=== PATIENT | female | born 1955 | race African-American/Black ===

== ENCOUNTER → 2016-12-23 | Outpatient (CLI) | payer BC ==
[2016-04-26 08:58] VITALS: BP 130/58
[~2016-12-23] MED LIST: ALPR0.5T PO; ALPR1TAB2 PO; ASPI-482 PO; ATEN50TA PO; DULO30CA2 PO; ESCI20TA10 PO; ESZO3TAB28 PO; FENT1PAT17 TP; GABA-586 PO; HYDR-2679 PO; HYDR50TA6 PO; IOHEXOL 180 MG/ML 10 ML VIAL. ONE; KRIL1CAP6 PO; LOVA40TA2 PO; MULT-230 PO; PREG50CA PO; TRAM50TA PO; TRAZ50TA15 PO; TRIA1TAB2 PO; methylPREDNISolone ACETATE 40 MG/ML VIAL. ONE; methylPREDNISolone ACETATE 80 MG/ML VIAL. ONE
--- NOTE | 2016-12-24 02:23 | PAIN ---
DATE OF SERVICE: 12/23/2016 DIAGNOSES: Lumbar radiculopathy with lumbar degenerative disk disease. HISTORY OF PRESENT ILLNESS: The patient is a 61-year-old female who returns for followup status post lumbar epidural steroid injections x 3, last seen in 05/2016. The patient did very well with this, about 75-80% improvement. The pain is returning now over the past 3 to 4 weeks. The patient reports it is in the low back and into the left lower extremity as it was previously. The patient reports it anywhere from ____ on a scale of 10, it is 7 on a scale 10 today. Reports it as aching, dull pain radiating and shooting in the posterior gluteus, posterior lateral thigh, posterior thigh and calf on the left side only. The patient reports worse with standing and walking, better with sitting. Does not awaken her from sleep at night. She is better lying down as well. The patient reports no new motor or sensory deficits, no new bowel or bladder incontinence or other complaints. PHYSICAL EXAMINATION: VITAL SIGNS: Today, the patient's blood pressure ____, pulse 73, respirations are 20, temperature 98.5 degrees Fahrenheit, weight is 206 pounds. GENERAL: The patient is awake, alert, oriented, appropriate, very pleasant demeanor. HEENT: Head shows normocephalic, atraumatic. Extraocular movements are intact, symmetrical. Oral cavity, mucous membranes are moist and pink. Dentition is intact. NECK: Shows anterior throat supple without palpable lymphadenopathy noted. Swallow reflex is symmetrical. CHEST: Shows normal on inspection. Breath sounds clear to auscultation bilaterally. HEART: Shows S1 and S2 clear. ABDOMEN: Soft, nontender, nondistended. No palpable organomegaly. No rebound or guarding demonstrated. BACK: The patient's back shows spine grossly in midline with normal appearing lumbar lordotic curvature. Inspection of the paraspinous musculature shows symmetrical on inspection. With palpation shows moderate tenderness to palpation in the lumbar distribution, but only diffusely without radiation. EXTREMITIES: Lower extremities showed deep tendon reflexes at 1+ in the patellar and tendo calcaneus tendons are equal. Motor exam is 5/5 and equal bilaterally. Options were discussed with the patient and the patient's old chart was reviewed as her current medication regimen updated. Current review of systems was updated today as well. We will proceed with a lumbar epidural steroid injection as she has done very well with these in the past with the first in the series with fluoroscopic guidance. Risks were again discussed including, but not limited to bleeding, infection, possibility of epidural hematoma and subsequent neurologic compromise, dural puncture, headaches, spinal cord and/or nerve damage, side effects of steroid medication and poor results regarding pain control. The patient understands and wishes to proceed. The patient will return to clinic in approximately 2 weeks for followup, was counseled on return appointment, activity level and side effects to be aware of. DIAGNOSIS: Lumbar radiculopathy with lumbar degenerative disease. PROCEDURES: Lumbar epidural steroid injection in translaminar approach at the L5-S1 level using C-arm fluoroscopic guidance under sterile prep and drape using local anesthetic. Medications injected are 120 mg Depo-Medrol plus 10 mL of preservative-free normal saline and 2 mL of Isovue for contrast. CONDITION AT DISCHARGE: Stable. The patient tolerated procedure well, had no complications. DAVID MCHUGH MD DR: ABE/dedrick JOB#: [id number] / [id number]
== END | disposition home or self-care (01) ==
LOC: PNCL 11:40
PROVIDERS: ATTEND Anesthesiology
DX: M51.16 Intervertebral disc disorders with radiculopathy, lumbar region (principal); E78.00 Pure hypercholesterolemia, unspecified; I10 Essential (primary) hypertension; F41.9 Anxiety disorder, unspecified; F32.9 Major depressive disorder, single episode, unspecified; Z90.49 Acquired absence of other specified parts of digestive tract; Z86.69 Personal history of other diseases of the nervous system and sense organs; Z87.39 Personal history of other diseases of the musculoskeletal system and connective tissue; Z82.49 Family history of ischemic heart disease and other diseases of the circulatory system; Z88.3 Allergy status to other anti-infective agents; Z91.048 Other nonmedicinal substance allergy status
CPT/HCPCS: 62323; J1030; J1040

== ENCOUNTER → 2017-01-08 | Outpatient (CLI) | payer BC ==
[2016-04-26 08:58] VITALS: BP 130/58
[~2017-01-08] MED LIST changes: -ESCI20TA10 PO; +LEXAPRO20 MG PO
== END | disposition home or self-care (01) ==
LOC: PNCL 08:20
PROVIDERS: ATTEND Anesthesiology
DX: M51.36 Other intervertebral disc degeneration, lumbar region (principal); E78.00 Pure hypercholesterolemia, unspecified; I10 Essential (primary) hypertension; F41.9 Anxiety disorder, unspecified; F32.9 Major depressive disorder, single episode, unspecified; Z72.89 Other problems related to lifestyle; Z86.69 Personal history of other diseases of the nervous system and sense organs; Z90.49 Acquired absence of other specified parts of digestive tract; Z82.49 Family history of ischemic heart disease and other diseases of the circulatory system
CPT/HCPCS: 62323; J1030; J1040

== ENCOUNTER → 2017-03-04 | Outpatient (CLI) | payer BC ==
[2016-04-26 08:58] VITALS: BP 130/58
--- NOTE | 2017-03-04 18:50 | PAIN ---
DATE OF SERVICE: 03/04/2017 PROGRESS NOTE FOR PAIN CLINIC DIAGNOSIS: Lumbar radiculopathy with lumbar degenerative disk disease. HISTORY OF PRESENT ILLNESS: The patient is a 62-year-old female who returns for followup status post lumbar epidural steroid injection x 2, last seen on 01/08/2017. The patient did very well after this with approximately 75% improvement for the first month, now is beginning to decrease and have more pain in the bilateral lower extremities, worse on the left than the right, rates at 10 on a scale of 10 at its worst, average of 9. Currently, it is 7 on a scale of 10 today. The patient reports it is cramping, constant, aching, radiating to the low back into the bilateral lower extremities, mostly in the posterior gluteus thighs and to the lower legs, mostly in the lateral and posterior calf. It is worse on the left than the right, but present bilaterally, worse with walking and standing, change in positions. The patient reports it does not awaken her from sleep at night and that she feels better with sitting or lying down. The patient reports no new motor or sensory deficits, no new bowel or bladder incontinence or other complaints. PHYSICAL EXAMINATION: VITAL SIGNS: Today, the patient's blood pressure 156/87, pulse 77, respirations 18, temperature 98.1 degrees Fahrenheit, weight is 203 pounds. GENERAL: The patient is awake, alert, oriented, appropriate, very pleasant demeanor. HEENT: Head shows normocephalic, atraumatic. Extraocular movements are intact and symmetrical. Oral cavity: Mucous membranes moist and pink. Dentition is intact. NECK: Shows anterior throat supple without palpable lymphadenopathy noted. Swallow reflex is symmetrical. CHEST: Shows normal on inspection. Breath sounds are clear to auscultation bilaterally. HEART: Shows S1, S2 clear. No murmurs auscultated. ABDOMEN: Soft, obese, nontender, nondistended. No palpable organomegaly is noted. BACK: Shows spine grossly midline. Normal appearing thoracic kyphosis and lumbar lordotic curvature. Lumbar paraspinous muscle shows some moderate tenderness with palpation bilaterally, but only diffusely and only without radiation. The patient has good rotation and motion of the lumbar spine, both laterally as well as extension and flexion. EXTREMITIES: Lower extremities show deep tendon reflexes 1+ in the patellar and tendocalcaneus tendons are equal. Motor exam is strong with 5/5 dorsiflexion, extension, quadriceps and hamstring flexion and symmetrical. Options were discussed with the patient and the patient's old chart was reviewed as her current medication regimen updated. Current review of systems updated today as well and we will proceed with the third in this series of lumbar epidural steroid injection with fluoroscopic guidance. Risks were again discussed including, but not limited to bleeding, infection, possibility of epidural hematoma and subsequent neurologic compromise, dural puncture, headaches, spinal cord and/or nerve damage, side effects of steroid medication and poor results regarding pain control. The patient understands and wishes to proceed. The patient will return to clinic in approximately 2 weeks for followup, was counseled on return appointment, activity level and side effects to be aware of. DIAGNOSIS: Lumbar radiculopathy with lumbar degenerative disk disease. PROCEDURE: Lumbar epidural steroid injection in translaminar approach at the L5-S1 level using C-arm fluoroscopic guidance under sterile prep and drape using local anesthetic. MEDICATION INJECTED: A total of 120 mg Depo-Medrol plus 10 mL preservative-free normal saline and 2 mL of Isovue for contrast. CONDITION AT DISCHARGE: Stable. The patient tolerated procedure well, had no complications. DAVID MCHUGH MD DR: ABE/dedrick JOB#: [id number] / [id number]
== END | disposition home or self-care (01) ==
LOC: PNCL 14:52
PROVIDERS: ATTEND Anesthesiology
DX: M51.16 Intervertebral disc disorders with radiculopathy, lumbar region (principal); E78.00 Pure hypercholesterolemia, unspecified; I10 Essential (primary) hypertension; F41.9 Anxiety disorder, unspecified; F32.9 Major depressive disorder, single episode, unspecified; Z90.49 Acquired absence of other specified parts of digestive tract; Z86.69 Personal history of other diseases of the nervous system and sense organs; Z87.39 Personal history of other diseases of the musculoskeletal system and connective tissue; Z88.3 Allergy status to other anti-infective agents
CPT/HCPCS: 62323; J1030; J1040

== ENCOUNTER → 2017-08-11 | Outpatient (CLI) | payer BC | END | disposition home or self-care (01) | LOC: KCIC 12:47 | DX: J98.11 Atelectasis (principal); J84.10 Pulmonary fibrosis, unspecified | CPT/HCPCS: 71101 ==

== ENCOUNTER → 2017-08-12 | Outpatient (CLI) | payer BC | END | disposition home or self-care (01) | LOC: PNCL 13:47 | DX: M51.16 Intervertebral disc disorders with radiculopathy, lumbar region (principal) | CPT/HCPCS: G0463 ==

== ENCOUNTER 2017-08-26 10:14 | Emergency (ER) | payer BC ==
[2017-08-26] MEDS: KETOROLAC 60 MG/2 ML INJ. IM ×2 (11:03)
[2017-08-26] MEDS: HYDROmorphone 2 MG/ML VIAL IM ×2 (11:03)
== END 2017-08-26 11:17 | disposition home or self-care (01) ==
LOC: ER 10:14
DX: M25.511 Pain in right shoulder (principal); M54.6 Pain in thoracic spine; F11.20 Opioid dependence, uncomplicated; M54.5 Low back pain; M54.2 Cervicalgia; R20.2 Paresthesia of skin; F41.9 Anxiety disorder, unspecified; F32.9 Major depressive disorder, single episode, unspecified; E11.9 Type 2 diabetes mellitus without complications; E78.00 Pure hypercholesterolemia, unspecified; I10 Essential (primary) hypertension; G89.29 Other chronic pain; E78.5 Hyperlipidemia, unspecified; Z98.1 Arthrodesis status; Z90.49 Acquired absence of other specified parts of digestive tract; Z98.51 Tubal ligation status; Z79.84 Long term (current) use of oral hypoglycemic drugs; Z88.1 Allergy status to other antibiotic agents; Z88.8 Allergy status to other drugs, medicaments and biological substances; Z91.048 Other nonmedicinal substance allergy status
CPT/HCPCS: 96372; 99284; J1170; J1885

== ENCOUNTER → 2017-08-26 | Outpatient (CLI) | payer BC | END | disposition home or self-care (01) | LOC: MAMMO 14:26 | DX: M51.16 Intervertebral disc disorders with radiculopathy, lumbar region (principal); I10 Essential (primary) hypertension; E78.5 Hyperlipidemia, unspecified; F41.9 Anxiety disorder, unspecified; F17.210 Nicotine dependence, cigarettes, uncomplicated; Z90.49 Acquired absence of other specified parts of digestive tract; Z98.890 Other specified postprocedural states; Z98.51 Tubal ligation status; Z87.39 Personal history of other diseases of the musculoskeletal system and connective tissue | CPT/HCPCS: 62323 ==

== ENCOUNTER → 2017-09-09 | Outpatient (CLI) | payer BC | END | disposition home or self-care (01) | LOC: PNCL 10:26 | DX: M51.16 Intervertebral disc disorders with radiculopathy, lumbar region (principal) | CPT/HCPCS: 99212 ==

== ENCOUNTER → 2017-09-25 | Outpatient (CLI) | payer BC | END | disposition home or self-care (01) | LOC: PNCL 10:03 | DX: M51.16 Intervertebral disc disorders with radiculopathy, lumbar region (principal); I10 Essential (primary) hypertension; F41.8 Other specified anxiety disorders; Z98.890 Other specified postprocedural states; Z90.49 Acquired absence of other specified parts of digestive tract; E78.00 Pure hypercholesterolemia, unspecified; Z79.899 Other long term (current) drug therapy | CPT/HCPCS: 99212 ==

== ENCOUNTER → 2017-10-13 | Outpatient (CLI) | payer BC ==
[~2017-10-13] MED LIST changes: -ALPR0.5T PO; -ALPR1TAB2 PO; -ASPI-482 PO; -ATEN50TA PO; -DULO30CA2 PO; -ESZO3TAB28 PO; -FENT1PAT17 TP; -GABA-586 PO; -HYDR-2679 PO; -HYDR50TA6 PO; +IOHEXOL 180 MG/ML 10 ML VIAL.; -IOHEXOL 180 MG/ML 10 ML VIAL. ONE; -KRIL1CAP6 PO; -LEXAPRO20 MG PO; -LOVA40TA2 PO; -MULT-230 PO; -PREG50CA PO; -TRAM50TA PO; -TRAZ50TA15 PO; -TRIA1TAB2 PO; +methylPREDNISolone ACETATE 40 MG/ML VIAL.; -methylPREDNISolone ACETATE 40 MG/ML VIAL. ONE; +methylPREDNISolone ACETATE 80 MG/ML VIAL.; -methylPREDNISolone ACETATE 80 MG/ML VIAL. ONE
== END | disposition home or self-care (01) ==
LOC: PNCL 13:34
DX: M51.16 Intervertebral disc disorders with radiculopathy, lumbar region (principal); M54.12 Radiculopathy, cervical region
CPT/HCPCS: 62323; J1030; J1040; Q9965

== ENCOUNTER → 2017-10-27 | Outpatient (CLI) | payer BC | END | disposition home or self-care (01) | LOC: PNCL 12:58 | DX: M51.16 Intervertebral disc disorders with radiculopathy, lumbar region (principal) | CPT/HCPCS: 62323; J1030; J1040; Q9965 ==

== ENCOUNTER → 2018-02-26 | Outpatient (CLI) | payer BC ==
[2017-08-26 11:00] VITALS: BP 137/63
[~2018-02-26] MED LIST changes: +ALPR0.5T PO; +ALPR1TAB2 PO; +ASPI-482 PO; +ATEN50TA PO; +DIAZ5TAB PO; +DULO30CA2 PO; +DULO60CA6 PO; +ESZO3TAB28 PO; +FENT1PAT17 TP; +GABA-586 PO; +GABA600T2 PO; +HYDR-2679 PO; +HYDR-2758 PO; +HYDR50TA6 PO; +IBUP200T44 PO; -IOHEXOL 180 MG/ML 10 ML VIAL.; +KRIL1CAP6 PO; +LEXAPRO20 MG PO; +LOVA40TA2 PO; +MELO7.5T29 PO; +MULT-230 PO; +NAPR-695 PO; +PREG50CA PO; +SITA1TAB11 PO; +TRAM50TA PO; +TRAZ-85 PO; +TRIA1TAB2 PO; -methylPREDNISolone ACETATE 40 MG/ML VIAL.; -methylPREDNISolone ACETATE 80 MG/ML VIAL.
--- NOTE | 2018-02-26 23:05 | PAIN ---
DATE OF SERVICE: 02/26/2018 DIAGNOSES: Lumbar radiculopathy with lumbar degenerative disk disease. HISTORY OF PRESENT ILLNESS: The patient is a 63-year-old female who returns for followup status post lumbar epidural steroid injection x 3, most recently 10/27/2017. The patient had about 80% improvement in the pain in her bilateral lower extremities, now is returning over the past 3 weeks or so. The patient did have new MRI scan of the lumbar spine ordered by her primary physician's office showing L5-S1 disk osteophyte complex with superimposed protrusion with [id number] narrowing of right lateral recess and lesser degree on the left with contact to descending S1 nerve roots with fairly severe neural foraminal compromise bilaterally. The patient reports significant pain in the bilateral lower extremities, essentially right equal to left rating 10 on a scale of 10, worst 8 on average, 5 at its least and it is an 8 today. The patient reports aching, sharp, dull, constant, radiating shooting in the posterior gluteus, posterior thigh, lateral thigh, posterior calf, posterior ankles bilaterally, worse with standing, walking, change in positions. The patient reports it is better with sitting or lying down, does not awaken her from sleep at night, usually just with walking and standing. The patient reports initially she was able to walk greater distances or doing household activities with much greater ease and comfort, now the pain is returning to its baseline level. The patient reports no new motor or sensory deficits, no new bowel or bladder incontinence. The patient continues to do physical therapy exercises on her own, stretching and strengthening daily and walking daily, even though the pain is still present. She is pushing through it and walking about half a mile a day on an average by her report. The patient reports no new motor or sensory deficits, no bowel or bladder incontinence. PHYSICAL EXAMINATION: VITAL SIGNS: The patient's blood pressure 142/84, pulse 91, respirations 18, temperature 98.1 degrees Fahrenheit, height 5 feet 3 inches, weight 199 pounds. GENERAL: The patient is awake, alert, oriented, appropriate, very pleasant demeanor. HEENT: Head shows normocephalic and atraumatic. Extraocular movements are intact and symmetrical. Oral cavity: Mucous membranes are moist and pink. Dentition is intact. NECK: Shows anterior throat supple without palpable lymphadenopathy noted. Swallow reflex is symmetrical. CHEST: Shows normal on inspection. Breath sounds clear to auscultation bilaterally. HEART: Shows S1, S2 clear. No murmurs auscultated. ABDOMEN: Obese, soft, nontender, nondistended. No palpable organomegaly is noted. No rebound or guarding demonstrated. BACK: The patient's back shows spine grossly in the midline. Lumbar paraspinous muscle shows symmetrical on inspection, with palpation shows [id number] tenderness in the middle and lower distribution of paraspinous muscles only diffusely, but without radiation. The patient has good rotational motion of lumbar spine, both laterally as well as extension and flexion without significant difficulty. No tenderness over the sacrum or sacroiliac regions. Lower extremities show deep tendon reflexes 1+ in the patellar and tendo calcaneus tendons are equal. Motor exam is strong with 5/5 dorsiflexion and extension. The patient shows peripheral pulses at 1+ posterior tibia. No peripheral edema is noted. The patient does have a mild straight leg raise bilaterally about 40-45 degrees, which is decreased with knee flexion, slightly worse on the right than the left, more tender, but present bilaterally. The patient is able to stand, stand on her toes, but loses balance quickly. She is walking with a slight shuffling gait, does not appear to favor the right or left lower extremity with the other significantly. Options were discussed with the patient. The patient's old chart was reviewed as her current medication regimen updated. Current review of systems updated today as well and we will preauthorize the patient for a lumbar epidural steroid injection as it has been over 6 months since her interventional injection. She had 80% improvement on the last injection with significant decrease in pain for about 3 months following the injection. The patient continues to do strengthening and stretching exercises on her own and again, the clinical radiculopathy in the L5-S1 dermatomal distribution with MRI evidence showing impingement at that level with contact at the bilateral L5 nerve root. PLAN: We had called in a Medrol Dosepak last week. This was helpful for a few days, but was not significantly fdc helpful. We will wait for preauthorization for lumbar epidural steroid injection and return at that time. DAVID MCHUGH MD DR: ABE/dedrick JOB#: [id number] / [id number]
== END | disposition home or self-care (01) ==
LOC: PNCL 13:26
PROVIDERS: ATTEND Anesthesiology
DX: M51.16 Intervertebral disc disorders with radiculopathy, lumbar region (principal)
CPT/HCPCS: G0463

== ENCOUNTER → 2018-03-12 | Outpatient (CLI) | payer BC ==
[2017-08-26 11:00] VITALS: BP 137/63
[~2018-03-12] MED LIST changes: +IOHEXOL 180 MG/ML 10 ML VIAL. ONE; +LIDOCAINE 2% PF 2ML VIAL. ONE; +methylPREDNISolone ACETATE 40 MG/ML VIAL. ONE; +methylPREDNISolone ACETATE 80 MG/ML VIAL. ONE
--- NOTE | 2018-03-13 00:44 | PAIN ---
DATE OF SERVICE: 03/12/2018 PROGRESS NOTE FOR PAIN CLINIC DIAGNOSIS: Lumbar radiculopathy with lumbar degenerative disk disease. HISTORY OF PRESENT ILLNESS: The patient is a 63-year-old female who returns for followup status post previous lumbar epidural steroid injection with very good results approximately 80% improvement after last injection, now pain returning as on her last visit of February 26. The patient reports pain in low back, bilateral lower extremities, mostly in the posterior gluteus, posterior thighs, posterior lower legs and into the feet and toes bilaterally. The patient reports it is radiating, worse with standing, walking, changing positions, better with sitting or lying down, does not awaken her from sleep at night. She sleeps 8 hours at a time, most of the time without disturbance from her pain. The patient reports her pain at 10 on scale of 10 at its worst, 8 on average and 8 at its least and is an 8 today. The patient reports it is aching, sharp, shooting, radiating, becoming severe, more unbearable in the low back and legs as described. The patient reports no new motor or sensory deficits and no new bowel or bladder incontinence. PHYSICAL EXAMINATION: VITAL SIGNS: Today, the patient's blood pressure 140/83, pulse 85, respirations 18, temperature 97.7 degrees Fahrenheit, height is 5 feet 3 inches and weighs 196 pounds. GENERAL: The patient is awake, alert, oriented, appropriate and very pleasant demeanor. HEENT: Head shows normocephalic and atraumatic. Extraocular movements are intact and symmetrical. Oral cavity: Mucous membranes moist and pink. Dentition is intact. NECK: Shows anterior throat supple without palpable lymphadenopathy noted. Swallow reflex symmetrical. CHEST: Shows normal with inspection. Breath sounds clear to auscultation bilaterally. HEART: Shows S1 and S2 clear. No murmurs auscultated. ABDOMEN: Soft, nontender and nondistended. No palpable organomegaly is noted. No rebound or guarding demonstrated. BACK: Shows spine grossly in the midline. Normal appearing thoracic kyphosis and some minor flattening of the lumbar lordotic curvature. Lumbar paraspinous muscle shows symmetrical on inspection and palpation shows some moderate tenderness but only diffusely without radiation. Full rotational motion is maintained both laterally as well as extension and flexion without pain reported. EXTREMITIES: Lower extremities show deep tendon reflexes at 1+ in the patellar and tendo-calcaneus tendons. Motor exam is strong with 5/5 dorsiflexion, extension, quadriceps and hamstring flexion and symmetrical. Peripheral pulses are 1+. No peripheral edema is noted bilaterally. Options were discussed with the patient. The patient's old chart was reviewed as well as her current medication regimen updated. Current review of systems updated today as well and we will proceed with a lumbar epidural steroid injection today with fluoroscopic guidance. Risks were again discussed including, but not limited to bleeding, infection, possibility of epidural hematoma, subsequent neurologic compromise, dural puncture, headaches, spinal cord and/or nerve damage, side effects of steroid medication and poor results regarding pain control. The patient understands and wished to proceed. The patient will return to the clinic in approximately 2 weeks for followup, was counseled to return appointment, activity level and side effects to be aware of. DIAGNOSIS: Lumbar radiculopathy with lumbar degenerative disk disease. PROCEDURE: Lumbar epidural steroid injection, translaminar approach at L5-S1 level using C-arm fluoroscopic guidance under sterile prep and drape using local anesthetic. MEDICATION INJECTED: A total of 120 mg Depo-Medrol plus 10 mL of preservative-free normal saline and 2 mL of Isovue for contrast. CONDITION AT DISCHARGE: Stable. The patient tolerated the procedure well and had no complications. DAVID MCHUGH MD DR: ABE/dedrick JOB#: [id number] / [id number]
== END | disposition home or self-care (01) ==
LOC: PNCL 14:21
PROVIDERS: ATTEND Anesthesiology
DX: M51.16 Intervertebral disc disorders with radiculopathy, lumbar region (principal); Z88.8 Allergy status to other drugs, medicaments and biological substances; Z88.1 Allergy status to other antibiotic agents; Z88.3 Allergy status to other anti-infective agents
CPT/HCPCS: 62323; J1030; J1040; J2001; Q9965

== ENCOUNTER → 2018-04-16 | Outpatient (CLI) | payer BC ==
[2017-08-26 11:00] VITALS: BP 137/63
--- NOTE | 2018-04-17 03:37 | PAIN ---
DATE OF SERVICE: 04/16/2018 PROGRESS NOTE FOR PAIN CLINIC DIAGNOSIS: Lumbar radiculopathy with lumbar degenerative disk disease. HISTORY OF PRESENT ILLNESS: The patient is a 63-year-old female who returns for followup status post lumbar epidural steroid injection x 1. The patient reports about 100% improvement for the first 2 weeks following the injection but after that time, the pain returned over the past week or so, increasing in the low back, bilateral lower extremities, near where it was previously to baseline. The patient reports it is across the low back, bilateral posterior gluteus, posterior thighs radiating to posterior calves and the feet bilaterally becoming more radiating. The patient described it as a shooting, aching, becoming more constant and severe, rates a 10 on a scale of 10 at its worst, 9 on average, 8 at its least and is an 8 today. The patient reports no new motor or sensory deficits and no new bowel or bladder incontinence or other complaints. The patient reports it does not awaken her from sleep at night, feels much better. She is off her feet, sitting or lying down but worse with standing, walking and prolonged sitting. PHYSICAL EXAMINATION: VITAL SIGNS: The patient's blood pressure is 143/81, pulse 84, respirations are 18, temperature 97.8 degrees Fahrenheit, height is 5 feet 3 inches and weighs 191 pounds. GENERAL: The patient is awake, alert, oriented, appropriate and very pleasant demeanor. HEENT: Head shows normocephalic and atraumatic. Extraocular movements are intact and symmetrical. Oral cavity, mucous membranes moist and pink. Dentition is intact. NECK: Shows anterior throat supple without palpable lymphadenopathy noted. Swallow reflex symmetrical. CHEST: Shows normal on inspection. Breath sounds clear to auscultation bilaterally. HEART: Shows S1 and S2 clear. No murmurs auscultated. ABDOMEN: Soft, nontender and nondistended. No palpable organomegaly is noted. No rebound or guarding demonstrated. BACK: Shows spine grossly in the midline. Normal appearing thoracic kyphosis and some minor flattening of lumbar lordotic curvature. Lumbar paraspinous muscle shows symmetrical on inspection with palpation shows some moderate tenderness bilaterally but only diffusely without radiation and without trigger points. EXTREMITIES: The patient's lower extremities show deep tendon reflexes at 1+ in the patella and tendo-calcaneus tendons are equal. Motor exam is strong with 5/5 dorsiflexion, extension, quadriceps and hamstring flexion and equal as well. Peripheral pulses are 1+ bilaterally. No peripheral edema is noted. Options were discussed with the patient. The patient's old chart was reviewed as well as her current medication regimen updated. Current review of systems updated today as well and we will proceed with a second in series of lumbar epidural steroid injection today with fluoroscopic guidance. Risks were again discussed including, but not limited to bleeding, infection, possibility of epidural hematoma, subsequent neurologic compromise, dural puncture, headaches, spinal cord and/or nerve damage, side effects of steroid medication and poor results regarding pain control. The patient understands and wished to proceed. The patient will return to the clinic in approximately 2 weeks for followup, was counseled as to return appointment, activity level and side effects to be aware of. DIAGNOSIS: Lumbar radiculopathy with lumbar degenerative disk disease. PROCEDURE: Lumbar epidural steroid injection, translaminar approach at the L5-S1 level using C-arm fluoroscopic guidance under sterile prep and drape using local anesthetic. MEDICATION INJECTED: A total of 120 mg Depo-Medrol plus 10 mL of preservative-free normal saline and 2 mL of Isovue for contrast. CONDITION AT DISCHARGE: Stable. The patient tolerated the procedure well and had no complications. DAVID MCHUGH MD DR: ABE/dedrick JOB#: [id number] / [id number]
--- NOTE | 2018-04-17 04:15 | PAIN ---
DATE OF SERVICE: 04/16/2018 ADDENDUM FOR PROGRESS NOTE With her history of chronic back pain and radicular pain, diagnoses of lumbar radiculopathy with lumbosacral degenerative disk disease as well as cervical radiculopathy, I feel that it is an appropriate for her to have narcotic analgesics available to her, not more than 3 times daily and a strength of 5 mg hydrocodone should be sufficient to still take on a p.r.n. basis. The patient has taken this in the past and had very good tolerance without significant side effects and it does help her with her chronic pain conditions. DAVID MCHUGH MD DR: ABE/dedrick JOB#: [id number] / [id number]
--- NOTE | 2018-04-18 02:31 | PAIN ---
DATE OF SERVICE: 04/16/2018 ADDENDUM DAVID MCHUGH MD DR: ABE/dedrick JOB#: [id number] / [id number] GISELLE Garza
== END | disposition home or self-care (01) ==
LOC: PNCL 14:39
PROVIDERS: ATTEND Anesthesiology
DX: M51.16 Intervertebral disc disorders with radiculopathy, lumbar region (principal); G89.29 Other chronic pain; Z88.1 Allergy status to other antibiotic agents; Z88.3 Allergy status to other anti-infective agents; Z88.8 Allergy status to other drugs, medicaments and biological substances; Z91.09 Other allergy status, other than to drugs and biological substances; Z79.82 Long term (current) use of aspirin; Z79.899 Other long term (current) drug therapy; Z98.890 Other specified postprocedural states
CPT/HCPCS: 62323; J1030; J1040; J2001; Q9965

== ENCOUNTER → 2018-05-25 | Outpatient (CLI) | payer BC ==
[2017-08-26 11:00] VITALS: BP 137/63
[~2018-05-25] MED LIST changes: -LIDOCAINE 2% PF 2ML VIAL. ONE
--- NOTE | 2018-05-26 03:46 | PAIN ---
DATE OF SERVICE: 05/25/2018 PROGRESS NOTE FOR PAIN CLINIC DIAGNOSIS: Lumbar radiculopathy with lumbar degenerative disk disease. HISTORY OF PRESENT ILLNESS: The patient is a 63-year-old female who returns for followup status post lumbar epidural steroid injection x 2, last seen on 04/16/2018. The patient did very well with about 80% improvement in her low back and bilateral lower extremity pain. The patient reports still some pain in the low back, bilateral lower extremities, posterior gluteus, posterior thigh, posterior calf, worse with walking, standing but much better than it was. The patient reports it is a 10 on a scale of 10 at its worst, 8 on average, 6 at its least and is a 6 today. The patient describes this as aching and dull, becoming radiating, becoming more constant, more severe as time goes on. Did very well for about first 3 weeks following the last injection. The patient reports no new motor or sensory deficits and no new bowel or bladder incontinence or other complaints. PHYSICAL EXAMINATION: VITAL SIGNS: The patient's blood pressure is 120/81, pulse 80, respirations 18 and temperature 98.2 degrees Fahrenheit. Height is 5 feet 3 inches and weight is 192 pounds. GENERAL: The patient is awake, alert, oriented, appropriate and very pleasant demeanor. HEENT: Head shows normocephalic and atraumatic. Extraocular movements are intact and symmetrical. Oral cavity, mucous membranes are moist and pink. Dentition is intact NECK: Shows anterior throat supple without palpable lymphadenopathy noted. Swallow reflex symmetrical. CHEST: Shows normal on inspection. Breath sounds clear to auscultation bilaterally. HEART: Shows S1 and S2 clear. No murmurs auscultated. ABDOMEN: Soft, nontender and nondistended. No palpable organomegaly is noted. No rebound or guarding demonstrated. BACK: Shows spine grossly in the midline. Normal appearing thoracic kyphosis and lumbar lordotic curvature. Lumbar paraspinous muscle shows symmetrical on inspection, on palpation shows some moderate tenderness but only diffusely in the low lumbar distribution without radiation. The patient has good rotational motion both laterally as well as extension and flexion. EXTREMITIES: Lower extremities show deep tendon reflexes at 1+ in the patellar and tendo-calcaneus tendons are equal. Motor exam is strong with 5/5 dorsiflexion, extension, quadriceps and hamstring flexion and symmetrical as well. Peripheral pulses are 1+ posterior tibia. No peripheral edema is noted. Options were discussed with the patient. The patient's old chart was reviewed as well as her current medication regimen updated. Current review of systems updated today as well. We will proceed with a third in the series of lumbar epidural steroid injection today with fluoroscopic guidance. Risks were again discussed including, but not limited to bleeding, infection, possibility of epidural hematoma, subsequent neurological compromise, dural puncture, headaches, spinal cord and/or nerve damage, side effects of steroid medication and poor results regarding pain control. The patient understands and wished to proceed. The patient will return to the clinic in approximately 2 weeks for followup, was counseled as to return appointment and activity level and side effects to be aware of. DIAGNOSIS: Lumbar radiculopathy with lumbar degenerative disk disease. PROCEDURE: Lumbar epidural steroid injection, translaminar approach L5-S1 level using C-arm fluoroscopic guidance under sterile prep and drape using local anesthetic. MEDICATION INJECTED: A total of 120 mg Depo-Medrol plus 10 mL of preservative-free normal saline and 2 mL of Isovue for contrast. CONDITION AT DISCHARGE: Stable. The patient tolerated the procedure well and had no complications. DAVID MCHUGH MD DR: ABE/dedrick JOB#: [id number] / [id number]
== END | disposition home or self-care (01) ==
LOC: PNCL 14:15
PROVIDERS: ATTEND Anesthesiology
DX: M51.16 Intervertebral disc disorders with radiculopathy, lumbar region (principal); Z88.1 Allergy status to other antibiotic agents; Z88.3 Allergy status to other anti-infective agents; Z88.8 Allergy status to other drugs, medicaments and biological substances; Z91.018 Allergy to other foods
CPT/HCPCS: 62323; J1030; J1040; Q9965

== ENCOUNTER → 2018-08-31 | Outpatient (CLI) | payer BC ==
[2017-08-26 11:00] VITALS: BP 137/63
[~2018-08-31] MED LIST changes: -GABA-586 PO; +GABA300C18 PO; -GABA600T2 PO; +GABA600T7 PO; -HYDR-2758 PO; +HYDR-2761 PO; -IOHEXOL 180 MG/ML 10 ML VIAL. ONE; -MULT-230 PO; +MULT-280 PO; -methylPREDNISolone ACETATE 40 MG/ML VIAL. ONE; -methylPREDNISolone ACETATE 80 MG/ML VIAL. ONE
--- NOTE | 2018-08-31 13:57 | KCIC ---
Bilateral digital screening mammograms with 3-D tomosynthesis: Reason for examination: Routine screening. Comparison is made to previous studies dated 08/26/2017 and 12/13/2014. Bilateral mammograms in CC and oblique projections were obtained with 2-D imaging and 3-D tomosynthesis imaging on a [employer] Inspiration unit and reviewed on the workstation. Interpretation was made with the benefit of CAD. The skin and nipples show no abnormalities. No abnormal axillary lymph nodes are seen. The breast parenchyma shows scattered fatty and fibroglandular density. (Breast density: Category B.) There continue to be a couple of small parenchymal densities in the right breast which appears to be stable. There is however a new circumscribed nodular density posteriorly in the 6:00 C position of the left breast measuring 5 mm in size. Recommend further evaluation with ultrasound. There are no other new nodules, suspicious calcifications or architectural distortion. Impression: New 5 mm nodule in the 6:00 C position of the left breast. Recommend further evaluation with ultrasound. BI-RADS Category 0: Incomplete. Needs additional imaging evaluation. "Our facility is accredited by the [employer] Mammography Program." This patient's information has been entered into a reminder system for the patient to be notified with the results of her examination and a target date for the next mammogram. Electronically signed by: Yasmeen Rodriguez MD (08/31/2018 1:54 PM) [id number]
--- NOTE | 2018-08-31 14:59 | KCIC ---
Bone densitometry - lumbar spine: No prior. Clinical history: Diabetes, menopausal, screening, osteoporosis.. Dual energy x-ray absorptiometry of the lumbar spine, as measured from L1-L4, reveals a bone mineral density of 1.23 gm/cm2. This examination indicates a bone mineral density of the lumbar spine which is normal for the patient's age and sex. The T score is 1.7. At this bone density level, there is no evidence for increased fracture risk of the lumbar spine. Bone Densitometry - Hip No prior. Dual energy x-ray absorptiometry of the left femoral neck reveals a bone mineral density of 1.029 gm/cm2. This examination indicates a bone mineral density of the hip which is normal for the patient's age and sex. T score is 0.7. At this bone density level, there is no evidence for increased fracture risk of the hip. Impression: 1. Normal bone mineral density of the lumbar spine and hip. Note: Definitions established by the World Health Organization: 1. Normal: T-score is -1.0 or above. 2. Osteopenia: T-score is between -1.0 and -2.5. 3. Osteoporosis: T-score is -2.5 or below. Electronically signed by: Yaw Ngo MD (08/31/2018 2:57 PM) [id number]
== END | disposition home or self-care (01) ==
LOC: KCIC DEXA 09:27
PROVIDERS: ATTEND Physician Assistant Surgical
DX: Z12.31 Encounter for screening mammogram for malignant neoplasm of breast (principal); N63.24 Unspecified lump in the left breast, lower inner quadrant; Z13.820 Encounter for screening for osteoporosis; E11.9 Type 2 diabetes mellitus without complications; Z78.0 Asymptomatic menopausal state
CPT/HCPCS: 77063; 77067; 77080

== ENCOUNTER → 2018-09-04 | Outpatient (CLI) | payer BC ==
[2017-08-26 11:00] VITALS: BP 137/63
[~2018-09-04] MED LIST changes: +TRAZ-118 PO; -TRAZ-85 PO
--- NOTE | 2018-09-04 12:31 | KCIC ---
Left breast ultrasound: Reason for examination: Nodular density on screening mammogram. Comparison is made to mammographic exam dated 08/31/2018. Ultrasound examination was performed in the area of mammographic concern and at the left axilla. In the 6:00 position 7 cm from the nipple, there is a 5.6 mm hypoechoic cystic/fibrocystic lesion present which has benign appearance. No other cystic or solid lesions are seen. No abnormal appearing lymph nodes are seen in the axilla. IMPRESSION: 5.6 mm cystic/fibrocystic lesion at the 6:00 position which appears to correspond with the mammographic finding. Recommend 6 month follow-up with left breast mammograms and ultrasound. BI-RADS Category 3: Probably Benign. "Our facility is accredited by the [employer] Mammography Program." This patient's information has been entered into a reminder system for the patient to be notified with the results of her examination and a target date for the next mammogram. Electronically signed by: Yasmeen Rodriguez MD (09/04/2018 12:28 PM) [id number]
== END | disposition home or self-care (01) ==
LOC: KCIC US 10:57
PROVIDERS: ATTEND Physician Assistant Surgical
DX: R92.8 Other abnormal and inconclusive findings on diagnostic imaging of breast (principal)
CPT/HCPCS: 76641

== ENCOUNTER → 2018-09-09 | Outpatient (CLI) | payer BC ==
[2017-08-26 11:00] VITALS: BP 137/63
--- NOTE | 2018-09-09 09:14 | KCIC ---
Examination: MRI of the right shoulder without contrast HISTORY: History of osteoarthritis right shoulder COMPARISON: None available Technique: Multiplanar, multisequence MR imaging of the right shoulder were performed without contrast FINDINGS: The long head of the biceps tendon is within the bicipital groove. The attachment of the long head of the biceps tendon to the superior labral anchor grossly appears intact. The attachment of the subscapularis tendon appear intact. The attachment of the supraspinatus, infraspinatus tendon grossly appears intact. Mild increased signal identified in the supraspinatus, infraspinatus tendons likely tendinosis. There is a long linear calcification, measuring 2.4 cm, of the distal aspect of the supraspinatus tendon likely calcific tendinosis. Small amount of fluid identified in the subacromial subdeltoid bursa. No evidence of full-thickness tear of the rotator cuff. There is mild increased signal identified in the labrum throughout likely degeneration. There is mild attenuated appearance of the posterior superior labrum. The muscle bulk grossly appears unremarkable. Moderate degenerative changes identified in the acromioclavicular joint with small inferior osteophyte at the acromioclavicular joint. The acromion is type II. Mild degenerative changes identified in the glenohumeral joint. There is mild obscuration of fat in the rotator interval. IMPRESSION: 1. Long linear calcification of the distal supraspinatus tendon probably calcific tendinosis. Minimal bursal fluid in the subacromial subdeltoid bursa probably mild bursitis. 2. Moderate degenerative changes acromioclavicular joint. 3. Mild degeneration of the labrum. 4. Mild obscuration of fat in the rotator interval likely adhesive capsulitis. Electronically signed by: Hemal Steven MD (09/09/2018 9:11 AM) [facility]
== END | disposition home or self-care (01) ==
LOC: KCIC MRI 07:45
PROVIDERS: ATTEND Orthopaedic Surgery Sports Medicine
DX: M19.011 Primary osteoarthritis, right shoulder (principal); M25.711 Osteophyte, right shoulder; M25.811 Other specified joint disorders, right shoulder
CPT/HCPCS: 73221

== ENCOUNTER → 2018-10-21 | Outpatient (CLI) | payer BC ==
[2017-08-26 11:00] VITALS: BP 137/63
[~2018-10-21] MED LIST changes: +IOHEXOL 180 MG/ML 10 ML VIAL. ONE; +methylPREDNISolone ACETATE 40 MG/ML VIAL. ONE; +methylPREDNISolone ACETATE 80 MG/ML VIAL. ONE
--- NOTE | 2018-10-21 22:52 | PAIN ---
DATE OF SERVICE: 10/21/2018 DIAGNOSES: 1. Lumbar radiculopathy with lumbar degenerative disk disease. 2. Cervical radiculopathy. HISTORY OF PRESENT ILLNESS: The patient is a 63-year-old female who returns for followup status post lumbar epidural steroid injection x 1 on 05/25/2018. The patient did very well with about 85% improvement until the last week or two, the pain began to return. The patient reports it is in her low back, bilateral lower extremities, radiating in the posterior gluteus, posterior thighs, posterior calves, into the feet with some numbness and tingling as well. The patient reports it is radiating, constant, becoming more aching across the low back, worse with walking, standing, better with sitting or lying down, does not awaken her from sleep at night. The patient reports it is 10 on a scale of 10 at its worst, 7 on average, 4 at its least and is 4 today. The patient reports no new motor or sensory deficits, no new bowel or bladder incontinence or other complaints. The patient reports she was increasing her distance walking, doing better activities at home, traveling and doing everything better, more comfortably without significant pain reported. PHYSICAL EXAMINATION: VITAL SIGNS TODAY: The patient's blood pressure is 144/81, pulse 83, respirations 16, temperature 98.2 degrees Fahrenheit. Height is 5 feet 3 inches, weight is 193 pounds. GENERAL: The patient is awake, alert, oriented, appropriate, very pleasant demeanor. HEENT: Head is normocephalic, atraumatic. Extraocular movements intact and symmetrical. Oral cavity: Mucous membranes moist and pink. Dentition is intact. NECK: Shows anterior throat supple without palpable lymphadenopathy noted. Swallow reflex symmetrical. CHEST: Shows normal on inspection. Breath sounds clear to auscultation bilaterally. HEART: Shows S1, S2 clear. No murmurs auscultated. ABDOMEN: Soft, nontender, nondistended. No palpable organomegaly is noted. No rebound or guarding demonstrated. BACK: Shows spine grossly in the midline. Normal-appearing thoracic kyphosis. Lumbar lordotic curvature slightly flattened. Lumbar paraspinous muscle shows symmetrical on inspection, with palpation shows some moderate tenderness diffusely without significant radiation. No asymmetry. The patient has good rotational motion both laterally as well as extension and flexion without difficulty. EXTREMITIES: Lower extremities show deep tendon reflexes at 1+ in the patellar and tendo calcaneus tendons are equal. Motor exam is strong with 5/5 dorsiflexion, extension, quadriceps and hamstring flexion is symmetrical. Peripheral pulses are 1+. No peripheral edema is noted bilaterally. Options were discussed with the patient. The patient's old chart was reviewed as was his current medication regimen updated. Current review of systems updated today as well. We will proceed with a second in the series of lumbar epidural steroid injection today with fluoroscopic guidance. Risks were again discussed including, but not limited to bleeding, infection, possibility of epidural hematoma, subsequent neurological compromise, dural puncture, headaches, spinal cord and/or nerve damage, side effects of steroid medication and poor results regarding pain control. The patient understands and wished to proceed. The patient will return to clinic in approximately 2 weeks for followup, was counseled as to return appointment, activity level and side effects to be aware of. DIAGNOSIS: Lumbar radiculopathy with lumbar degenerative disk disease. PROCEDURE: Lumbar epidural steroid injection, translaminar approach L5-S1 level using C-arm fluoroscopic guidance under sterile prep and drape using local anesthetic. MEDICATION INJECTED: A total of 120 mg Depo-Medrol plus 10 mL of preservative-free normal saline and 2 mL of Isovue for contrast. CONDITION AT DISCHARGE: Stable. The patient tolerated procedure well, had no complications. DAVID MCHUGH MD DR: ABE/dedrick JOB#: [id number] / [id number]
== END | disposition home or self-care (01) ==
LOC: PNCL 08:36
PROVIDERS: ATTEND Anesthesiology
DX: M51.16 Intervertebral disc disorders with radiculopathy, lumbar region (principal); Z88.8 Allergy status to other drugs, medicaments and biological substances; Z91.018 Allergy to other foods
CPT/HCPCS: 62323; J1030; J1040; Q9965

== ENCOUNTER → 2018-12-02 | Outpatient (CLI) | payer BC ==
[2017-08-26 11:00] VITALS: BP 137/63
--- NOTE | 2018-12-03 03:09 | PAIN ---
DATE OF SERVICE: 12/02/2018 PROGRESS NOTE FOR PAIN CLINIC DIAGNOSIS: Lumbar radiculopathy with lumbar degenerative disk disease. HISTORY OF PRESENT ILLNESS: The patient is a 63-year-old female who returns for followup status post lumbar epidural steroid injection x 1 on 10/21/2018. The patient did very well with about 90% improvement until about a week ago, the pain began to return in the low back, bilateral lower extremities, mostly in the posterior gluteus, posterior thighs, posterior calves and feet, but worse with walking, standing and change in positions. The patient reports otherwise doing fairly well. She was increasing her activity of distance walking and doing household activities and traveling with greater ease and comfort. Prior to that, mainly over the past week, it has been a 9 on a scale of 10 at its worst, 7 on average, 5 at its least and is a 7 today. The patient reports no new motor or sensory deficits, no new bowel or bladder incontinence, still significant pain in the low back, bilateral lower extremities as noted. The patient reports it does not awaken her from sleep at night, better with sitting or lying down. Again, worse with standing and walking, changing positions and traveling. PHYSICAL EXAMINATION: VITAL SIGNS: The patient's blood pressure is 133/79, pulse 88, respirations 16, temperature 97.8 degrees Fahrenheit. Height is 5 feet 3 inches, weight is 195 pounds. GENERAL: The patient is awake, alert, oriented, appropriate, very pleasant demeanor. HEENT: Shows normocephalic, atraumatic. Extraocular muscles are intact and symmetrical. Oral cavity: Mucous membranes moist and pink. Dentition is intact. NECK: Shows anterior throat supple without palpable lymphadenopathy noted. Swallow reflex symmetrical. CHEST: Shows normal with inspection. Breath sounds are clear to auscultation bilaterally. HEART: Shows S1, S2 clear. No murmurs auscultated. ABDOMEN: Soft, nontender, nondistended. No palpable organomegaly is noted. No rebound or guarding demonstrated. BACK: Shows spine grossly in the midline. Normal appearing thoracic kyphosis and minor flattening of lumbar lordotic curvature. Lumbar paraspinous muscle shows symmetrical on inspection, with palpation shows some mild tenderness, but only in the low lumbar distribution, but only diffusely without radiation. No tenderness over the spinous processes, sacrum or sacroiliac regions. The patient has good rotational motion of the lumbar spine, both laterally as well as extension and flexion without difficulty. EXTREMITIES: Lower extremities show deep tendon reflexes 1+ in the patellar and tendo-calcaneus tendons. Motor exam is strong with 5/5 dorsiflexion, extension, quadriceps and hamstring flexion symmetrical. Peripheral pulses are 2+. No peripheral edema is noted in the ankles bilaterally. Options were discussed with the patient. The patient's old chart was reviewed as his current medication regimen updated. Current review of systems updated today as well. We will proceed with a second in the series of lumbar epidural steroid injection today with fluoroscopic guidance. Risks were again discussed including, but not limited to bleeding, infection, possibility of epidural hematoma, subsequent neurologic compromise, dural puncture, headaches, spinal cord and/or nerve damage, side effects of steroid medication and poor results regarding pain control. The patient understands and wished to proceed. The patient will return to clinic in approximately 2 weeks for followup, was counseled on return appointment, activity level and side effects to be aware of. DIAGNOSIS: Lumbar radiculopathy with lumbar degenerative disk disease. PROCEDURE: Lumbar epidural steroid injection, translaminar approach at the L5-S1 level using C-arm fluoroscopic guidance under sterile prep and drape using local anesthetic. MEDICATION INJECTED: A total of 120 mg Depo-Medrol plus 10 mL of preservative-free normal saline and 2 mL of Isovue for contrast. CONDITION AT DISCHARGE: Stable. The patient tolerated the procedure well, had no complications. DAVID MCHUGH MD DR: ABE/dedrick JOB#: [id number] / [id number]
== END | disposition home or self-care (01) ==
LOC: PNCL 13:29
PROVIDERS: ATTEND Anesthesiology
DX: M51.16 Intervertebral disc disorders with radiculopathy, lumbar region (principal); Z88.8 Allergy status to other drugs, medicaments and biological substances; Z91.018 Allergy to other foods
CPT/HCPCS: 62323; J1030; J1040; Q9965

== ENCOUNTER → 2019-03-04 | Outpatient (CLI) | payer BC ==
[2018-12-26 18:23] VITALS: BP 127/63
[~2019-03-04] MED LIST changes: -IOHEXOL 180 MG/ML 10 ML VIAL. ONE; +POTA20TA82 PO; -methylPREDNISolone ACETATE 40 MG/ML VIAL. ONE; -methylPREDNISolone ACETATE 80 MG/ML VIAL. ONE
--- NOTE | 2019-03-04 11:27 | KCIC ---
Left breast diagnostic digital mammograms with 3-D tomosynthesis: Reason for examination: Follow-up nodule. Comparison is made to previous studies dated 08/31/2018 and 08/26/2017 Bilateral mammograms in CC and oblique projections were obtained with 2-D imaging and 3-D tomosynthesis imaging on a [employer] PF Inspiration unit and reviewed on the workstation. Interpretation was made with the benefit of CAD. The skin and nipples show no abnormalities. No abnormal axillary lymph nodes are seen. The breast parenchyma is predominantly fatty. (Breast density: Category A.) There continues to be a small circumscribed nodule at the 6:00 C position of the left breast measuring approximately 5 mm in size. There are no other new dominant masses, suspicious calcifications or architectural distortion. Impression: 5 mm nodule at the 6:00 C position of the left breast which appears to be stable. Ultrasound to follow. BI-RAD Category 0: Incomplete. Needs additional imaging evaluation. Left breast ultrasound: Comparison is made to previous study dated 09/04/2018. Ultrasound examination was performed in the area of mammographic concern and at the left axilla. In the 6:00 position 7 cm from the nipple, there continues to be a small circumscribed lesion measuring 4.9 mm in greatest dimension which is probably fibrocystic and may be slightly smaller than on previous exam. No other cystic or solid lesions are seen. No abnormal appearing lymph nodes are seen in the left axilla. IMPRESSION: Continued presence of a small circumscribed lesion at the 6:00 position measuring 4.9 mm in size. Recommend continued 6 month follow-up with ultrasound performed at the time of bilateral mammograms. BI-RADS Category 3: Probably Benign. "Our facility is accredited by the [employer] Mammography Program." This patient's information has been entered into a reminder system for the patient to be notified with the results of her examination and a target date for the next mammogram. Electronically signed by: Yasmeen Rodriguez MD (03/04/2019 11:24 AM) [id number]
== END | disposition home or self-care (01) ==
LOC: KCIC MAMMO 09:56
PROVIDERS: ATTEND Physician Assistant Surgical
DX: N63.24 Unspecified lump in the left breast, lower inner quadrant (principal)
CPT/HCPCS: 76641; 77065; G0279; 77061

== ENCOUNTER → 2019-04-27 | Outpatient (CLI) | payer BC ==
[2018-12-26 18:23] VITALS: BP 127/63
[~2019-04-27] MED LIST changes: +IOHEXOL 180 MG/ML 10 ML VIAL. ONE; +methylPREDNISolone ACETATE 40 MG/ML VIAL. ONE; +methylPREDNISolone ACETATE 80 MG/ML VIAL. ONE
--- NOTE | 2019-04-27 09:16 | PAIN ---
DATE OF SERVICE: 04/27/2019 PROGRESS NOTE FOR PAIN CLINIC DIAGNOSIS: Lumbar radiculopathy with lumbar degenerative disk disease. HISTORY OF PRESENT ILLNESS: The patient is a 64-year-old female who returns for followup, status post lumbar epidural steroid injection #3 on 02/08/2019, did very well with it and had about 100% improvement until the last 2 weeks. The patient reports the pain is returning in the low back, bilateral lower extremities, posterior gluteus, posterior thighs, and posterior calves bilaterally, somewhat worse on the left than the right, but reports it is worse with walking, standing, and changing positions. It is better with sitting or lying down. It does not awaken her from sleep at night. The patient reports it is a 10 on a scale of 10 at its worst, 8 on average, 6 at its least, and is a 6 today. The patient describes it is radiating, constant, burning, and aching across the low back as well. The patient reports no new motor or sensory deficits and no new bowel or bladder incontinence or other complaints. PHYSICAL EXAMINATION: VITAL SIGNS: The patient's blood pressure 156/76, pulse 77, respirations 18, temperature 98.4 degrees Fahrenheit, height is 5 feet 3 inches, and weight is 201 pounds. GENERAL: The patient is awake, alert, oriented, and appropriate. Very pleasant demeanor. HEENT: Normocephalic and atraumatic. Extraocular movements are intact and symmetrical. Oral cavity: Mucous membranes are moist and pink. Dentition is intact. NECK: Anterior throat supple without palpable lymphadenopathy noted. Swallow reflex symmetrical. CHEST: Normal on inspection. Breath sounds clear to auscultation bilaterally. HEART: S1, S2 clear. No murmurs auscultated. ABDOMEN: Soft, nontender, and nondistended. No palpable organomegaly is noted. No rebound or guarding demonstrated. BACK: Spine grossly in the midline. Normal appearing thoracic kyphosis and lumbar lordotic curvature. Lumbar paraspinous muscle shows symmetrical on inspection with palpation showing some moderate tenderness diffusely, but only diffusely without significant radiation. EXTREMITIES: The patient's lower extremities show deep tendon reflexes at 1+ in patellar and tendo calcaneus tendons. Motor exam is strong with 5/5 dorsiflexion, extension, quadriceps, and hamstring flexion. Peripheral pulses are 1+ posterior tibia. No peripheral edema is noted bilaterally. Options were discussed with the patient. The patient's old chart was reviewed, as her current medication regimen updated. Current review of systems updated today as well. We will proceed with a lumbar epidural steroid injection today, the first in this series. Risks were again discussed including but not limited to bleeding, infection, possibility of epidural hematoma, subsequent neurological compromise, dural puncture, headaches, spinal cord and/or nerve damage, side effects of steroid medication, and poor results regarding pain control. The patient understands and wished to proceed. The patient will return to clinic in approximately 2 weeks for followup. She was counseled on return appointment, activity level, and side effects to be aware of. DIAGNOSIS: Lumbar radiculopathy with lumbar degenerative disk disease. PROCEDURE: Lumbar epidural steroid injection, translaminar approach at L5-S1 level using C-arm fluoroscopic guidance under sterile prep and drape using local anesthetic. MEDICATION INJECTED: The patient received a total of 120 mg Depo-Medrol plus 10 mL of preservative-free normal saline and 2 mL of contrast. CONDITION AT DISCHARGE: Stable. The patient tolerated the procedure well and had no complications. DAVID MCHUGH MD DR: ABE/dedrick JOB#: [id number] / [id number]
== END ==
LOC: PNCL 08:12
PROVIDERS: ATTEND Anesthesiology
DX: M51.16 Intervertebral disc disorders with radiculopathy, lumbar region (principal)
CPT/HCPCS: 62323; J1030; J1040; Q9965

== ENCOUNTER → 2019-06-07 | Outpatient (CLI) | payer BC ==
[2018-12-26 18:23] VITALS: BP 127/63
--- NOTE | 2019-06-07 10:29 | PAIN ---
DATE OF SERVICE: 06/07/2019 PROGRESS NOTE FOR PAIN CLINIC DIAGNOSES: 1. Lumbar radiculopathy with lumbar degenerative disk disease. 2. Cervical radiculopathy. 3. Right shoulder joint pain. HISTORY OF PRESENT ILLNESS: The patient is a 64-year-old female who returns for followup status post lumbar epidural steroid injection x 1 on 04/27/2019. The patient did very well with near 100% improvement for the first 2 weeks. The pain began to return very slowly, very gradually over the past month. The pain has been returning in the low back, bilateral lower extremities, posterior gluteus, posterior thighs, posterior calves radiating to the feet bilaterally as well, worse with walking, standing, changing positions. The patient reports that it is 10 on a scale of 10 at its worst over the past week, 8 on average, 6 at its least and is a 6 today. The patient reports it is on and off, but aching and dull in the back with shooting pain is cramping and stabbing at times in the lower extremities. The patient reports she is sleeping well at night, is better with sitting or lying down, does not awake her from sleep. PHYSICAL EXAMINATION: VITAL SIGNS: The patient's blood pressure 141/75, pulse 80, respirations 16, temperature of 97.9 degrees Fahrenheit, height is 5 feet 3-1/2 inches and weight is 201 pounds. GENERAL: The patient is awake, alert, oriented, appropriate, very pleasant demeanor. HEENT: Shows normocephalic, atraumatic. Extraocular movements are intact and symmetrical. Oral cavity: Mucous membranes moist and pink. Dentition is intact. NECK: Shows anterior throat supple without palpable lymphadenopathy noted. Swallow reflex symmetrical. CHEST: Shows normal on inspection. Breath sounds clear to auscultation bilaterally. HEART: Shows S1, S2 clear. No murmurs auscultated. ABDOMEN: Soft, nontender, nondistended. No palpable organomegaly is noted. No rebound or guarding demonstrated. BACK: Shows spine grossly in the midline. Slight exaggeration of thoracic kyphosis and minor flattening of lumbar lordotic curvature. Lumbar paraspinous muscle shows symmetrical on inspection, with palpation shows some moderate tenderness diffusely bilaterally going diffusely without significant radiation. EXTREMITIES: The patient's lower extremities show deep tendon reflexes at 1+ in the patellar and tendo calcaneus tendons. Motor exam is strong with 5/5 dorsiflexion, extension, quadriceps, and hamstring flexion and symmetrical. Peripheral pulses are 1+ posterior tibia. No peripheral edema is noted bilaterally. Options were discussed with the patient. The patient's old chart was reviewed as her current medication regimen updated. Current review of systems updated today as well and we will proceed with the lumbar epidural steroid injections, the second in the series with fluoroscopic guidance. Risks were again discussed including, but not limited to bleeding, infection, possibility of epidural hematoma, subsequent neurological compromise, dural puncture, headaches, spinal cord and/or nerve damage, side effects of steroid medication and poor results regarding pain control. The patient understands and wished to proceed. The patient will return to clinic in approximately 2 weeks for followup. She was counseled on return appointment, activity level, and side effects to be aware of. DIAGNOSIS: Lumbar radiculopathy with lumbar degenerative disk disease. PROCEDURE: Lumbar epidural steroid injection, translaminar approach L5-S1 level using C-arm fluoroscopic guidance under sterile prep and drape using local anesthetic. MEDICATION INJECTED: A total of 120 mg Depo-Medrol plus 10 mL of preservative-free normal saline and 2 mL of contrast. CONDITION AT DISCHARGE: Stable. The patient tolerated the procedure well, had no complications. DAVID MCHUGH MD DR: ABE/dedrick JOB#: [id number] / [id number]
== END ==
LOC: PNCL 07:40
PROVIDERS: ATTEND Anesthesiology
DX: M51.16 Intervertebral disc disorders with radiculopathy, lumbar region (principal)
CPT/HCPCS: 62323; J1030; J1040; Q9965

== ENCOUNTER → 2019-07-26 | Outpatient (CLI) | payer BC ==
[2018-12-26 18:23] VITALS: BP 127/63
[~2019-07-26] MED LIST changes: +POTA20TA4 PO; -POTA20TA82 PO
--- NOTE | 2019-07-27 00:31 | PAIN ---
DATE OF SERVICE: 07/26/2019 PROGRESS NOTE FOR PAIN CLINIC DIAGNOSES: 1. Lumbar radiculopathy with lumbar degenerative disk disease. 2. Cervical radiculopathy with cervical degenerative disk disease. 3. Right shoulder joint pain. HISTORY OF PRESENT ILLNESS: This is a 64-year-old female who returns for followup status post lumbar epidural steroid injection x 2, most recently 06/07/2019. The patient reports she did very well with about 90% improvement for the first month. The pain began to return now over the past week or two, but only to a moderate extent in the low back and bilateral lower extremities, slightly worse on the left than the right currently, but mostly in both lower extremities with radiation across the low back into the posterior gluteus, posterior thighs, posterior calves bilaterally, again slightly more intense on the left side. The patient reports no new motor or sensory deficits, no new bowel or bladder incontinence, no recent injuries or accidents. The patient reports it is an aching pain that is sharp and shooting, described as constant and becoming more severe and unbearable with walking, standing, better with sitting or lying down, does not awaken her from sleep at night. The patient reports it is a 10 on a scale of 10 at its worst over the past week, 9 on average, 7 at its least and is an 8 today. The patient reports no new changes, no bowel or bladder incontinence or other complaints. PHYSICAL EXAMINATION: VITAL SIGNS: The patient's blood pressure is 149/75, pulse 83, respirations 18, temperature 98.2 degrees Fahrenheit. Height is 5 feet 3 inches. Weight is 195 pounds. GENERAL: The patient is awake, alert, oriented, appropriate, very pleasant demeanor. HEENT: Shows normocephalic, atraumatic. Extraocular movements are intact and symmetrical. Oral cavity shows mucous membranes moist and pink. Dentition is intact. NECK: Shows anterior throat supple without palpable lymphadenopathy noted. Swallow reflex is symmetrical. CHEST: Shows normal on inspection. Breath sounds are clear to auscultation bilaterally. HEART: Shows S1 and S2 clear. No murmurs auscultated. ABDOMEN: Soft, nontender, nondistended. BACK: Shows spine grossly in the midline. Normal appearing thoracic kyphosis and minor flattening of the lumbar lordotic curvature. Lumbar paraspinous muscle shows symmetrical on inspection, with palpation shows some moderate tenderness diffusely bilaterally, but only diffusely without significant radiation. The patient has good rotational motion of lumbar spine, both laterally as well as extension and flexion. EXTREMITIES: The patient's lower extremities show deep tendon reflexes 1+ in the patellar and tendo calcaneus tendons. Motor exam is strong with dorsiflexion, extension, quadriceps and hamstring flexion and symmetrical and rated at 5/5 and equal. Peripheral pulses are 1+. No peripheral edema is noted. Options were discussed with the patient. The patient's old chart was reviewed as her current medication regimen updated. Current review of systems updated today as well. We will proceed with a third in the series of lumbar epidural steroid injection today with fluoroscopic guidance. Risks were again discussed including, but not limited to bleeding, infection, possibility of epidural hematoma, subsequent neurologic compromise, dural puncture, headaches, spinal cord and/or nerve damage, side effects of steroid medication and poor results regarding pain control. The patient understands and wished to proceed. The patient will return to clinic in approximately 2 weeks for followup. She was counseled as to return appointment, activity level and side effects to be aware of. DIAGNOSIS: Lumbar radiculopathy with lumbar degenerative disk disease. PROCEDURES: Lumbar epidural steroid injection with translaminar approach at L5-S1 level using C-arm fluoroscopic guidance under sterile prep and drape using local anesthetic. MEDICATIONS INJECTED: A total of 120 mg Depo-Medrol plus 10 mL of preservative-free normal saline and 2 mL of contrast. CONDITION AT DISCHARGE: Stable. The patient tolerated the procedure well, had no complications. DAVID MCHUGH MD DR: ABE/dedrick JOB#: [id number] / [id number]
== END ==
LOC: PNCL 13:45
PROVIDERS: ATTEND Anesthesiology
DX: M51.16 Intervertebral disc disorders with radiculopathy, lumbar region (principal); M50.10 Cervical disc disorder with radiculopathy, unspecified cervical region
CPT/HCPCS: 62323; J1030; J1040; Q9965

== ENCOUNTER → 2019-08-02 | Outpatient (CLI) | payer BC ==
[2018-12-26 18:23] VITALS: BP 127/63
[~2019-08-02] MED LIST changes: -IOHEXOL 180 MG/ML 10 ML VIAL. ONE; -methylPREDNISolone ACETATE 40 MG/ML VIAL. ONE; -methylPREDNISolone ACETATE 80 MG/ML VIAL. ONE
[2019-08-02 16:20] LABS: HEMATOCRIT 39.7 % (36.0-47.0); HEMOGLOBIN 13.1 g/dL (12.0-15.5); RED BLOOD COUNT 4.38 x10^6/uL (3.50-5.40); RED CELL DISTRIBUTION WIDTH 14.4 % (11.5-14.5); WHITE BLOOD COUNT 12.8 x10^3/uL (4.0-11.0)
[2019-08-02 16:52] LABS: ALBUMIN 3.9 g/dL (3.4-5.0); ALBUMIN/GLOBULIN RATIO 0.9 (1.0-1.7); CALCIUM 9.7 mg/dL (8.5-10.1); CREATININE 0.9 mg/dL (0.6-1.0); GFR 76.8; TOTAL BILIRUBIN 0.4 mg/dL (0.2-1.0); TOTAL PROTEIN 8.2 g/dL (6.4-8.2)
[2019-08-02 16:57] LABS: CHOLESTEROL/HDL RATIO 4.5
[2019-08-03 04:09] LABS: HEMOGLOBIN A1C 6.8 % (4.8-5.6)
== END | disposition home or self-care (01) ==
LOC: LAB 15:25
PROVIDERS: ATTEND Family Medicine
DX: E11.9 Type 2 diabetes mellitus without complications (principal)
CPT/HCPCS: 36415; 80053; 80061; 83036; 85027

== ENCOUNTER → 2019-09-06 | Outpatient (CLI) | payer BC ==
[2018-12-26 18:23] VITALS: BP 127/63
--- NOTE | 2019-09-06 10:42 | KCIC ---
EXAM: Abdomen sonogram. HISTORY: Elevated liver enzyme laboratory values. TECHNIQUE: Sonographic imaging of the abdomen was performed. COMPARISON: None. FINDINGS: The liver is enlarged. There is hepatic steatosis. There is a mildly dilated common bile duct, likely due to reservoir effect status post cholecystectomy. The kidneys and pancreas are unremarkable. There are splenic granulomas. The spleen is normal in size. The aorta is partially obscured due to bowel gas. The inferior vena cava is patent. IMPRESSION: 1. Hepatomegaly and hepatic steatosis. 2. Mildly dilated common bile duct for patient age, likely due to reservoir effect status post cholecystectomy. Electronically signed by: Rubi Wood MD (09/06/2019 10:39 AM) [id number]
--- NOTE | 2019-09-06 11:09 | KCIC ---
EXAM: Bilateral digital diagnostic mammogram with tomosynthesis; left breast sonogram. HISTORY: 64-year-old female presents for follow-up evaluation of nodularity within the left breast. The patient is due for bilateral mammography. TECHNIQUE: Full-field digital craniocaudal and mediolateral oblique 2D and 3D tomosynthesis images of both breasts are obtained for evaluation. Computer aided detection with [employer] software version 9.3 was applied. Sonographic imaging of the left breast targeted to the site of mammographic nodularity was also performed. COMPARISON: Mammogram and sonogram dated 03/04/2019, sonogram dated 09/04/2018, and mammogram dated 08/26/2017. BREAST PARENCHYMAL DENSITY: Level B - Scattered fibroglandular densities. FINDINGS: There is no new suspicious mass, microcalcification or region of architectural distortion. There is stable nodularity within the posterior 6:00 position of the left breast. Sonographic imaging of the left breast demonstrates a 4.2 mm circumscribed oval hypoechoic lesion without blood flow at the 6:00 position 7 cm from the nipple. This is minimally decreased in size compared to studies dating to 09/04/2018. No new lesion is seen. IMPRESSION: 1. Minimal decreased size of a benign-appearing 4.2 mm hypoechoic lesion at the posterior 6:00 position of the left breast. The imaging appearance favors a benign complicated cyst rather than solid or fibrocystic lesion. There is no new suspicious mammographic or sonographic finding. 2. BI-RADS Category 2: Benign finding(s). Annual mammography is recommended. If your mammogram demonstrates that you have dense breast tissue, which could hide abnormalities, and if you have other risk factors for breast cancer that have been identified, you might benefit from supplemental screening tests that may be suggested by your ordering physician. Dense breast tissue, in and of itself, is a relatively common condition. This information is not provided to cause undue concern, but rather to raise your awareness and to promote discussion with your physician regarding the presence of other risk factors, in addition to dense breast tissue. A report of your mammography results will be sent to you and your physician. You should contact your physician if you have any questions or concerns regarding this report. Mammography is a sensitive method for finding small breast cancers, but it does not detect them all and is not a substitute for careful clinical examination. A negative mammogram does not negate a clinically suspicious finding and should not result in delay in biopsying a clinically suspicious abnormality. PQRS compliance statement - Patient information was entered into a reminder system with a target due date for the next mammogram. "Our facility is accredited by the [employer] Mammography Program." Electronically signed by: Rubi Wood MD (09/06/2019 11:06 AM) [email or web address]
== END | disposition home or self-care (01) ==
LOC: KCIC US 08:49
PROVIDERS: ATTEND Family Medicine
DX: K76.0 Fatty (change of) liver, not elsewhere classified (principal); N63.24 Unspecified lump in the left breast, lower inner quadrant; R16.0 Hepatomegaly, not elsewhere classified; K83.8 Other specified diseases of biliary tract; Z90.49 Acquired absence of other specified parts of digestive tract
CPT/HCPCS: 76641; 76700; 77066; G0279; 77062

== ENCOUNTER → 2019-11-03 | Outpatient (CLI) | payer BC ==
[2018-12-26 18:23] VITALS: BP 127/63
[~2019-11-03] MED LIST changes: +IOHEXOL 180 MG/ML 10 ML VIAL. ONE; +methylPREDNISolone ACETATE 40 MG/ML VIAL. ONE; +methylPREDNISolone ACETATE 80 MG/ML VIAL. ONE
--- NOTE | 2019-11-03 12:17 | PAIN ---
DATE OF SERVICE: 11/03/2019 PROGRESS NOTE FOR PAIN CLINIC DIAGNOSES: 1. Lumbar radiculopathy with lumbar degenerative disk disease. 2. Cervical radiculopathy. 3. Right shoulder joint pain. HISTORY OF PRESENT ILLNESS: The patient is a 64-year-old female who returns for followup status post lumbar epidural steroid injections, most recently 07/26/2019. The patient reports she did very well with about 75% improvement overall, but it took a little longer than most times to start feeling better but after a week or so, it was doing much better. The patient reports she was doing better until about the last week, the pain began to return. Initially, she was increasing distance walking, doing work activities, household activities, traveling with greater ease and comfort, getting out of a car with greater ease. The patient reports still does not bother her with lying down, does not awaken her from sleep. It is usually better with sitting or lying down, worse with standing, walking, changing positions or getting up from a seated position. The patient reports it is an 8 on a scale of 10 at its worst over the past week, 7 on average, 6 at its least and is a 6 today. The patient reports no new motor or sensory deficits, no new bowel or bladder incontinence. No other complaints. PHYSICAL EXAMINATION: VITAL SIGNS: The patient's blood pressure is 142/83, pulse 81, respirations 16, temperature 98.4 degrees Fahrenheit, weight is 192 pounds. GENERAL: The patient is awake, alert, oriented, appropriate, very pleasant demeanor. HEENT: Shows normocephalic, atraumatic. Extraocular movements are intact and symmetrical. Oral cavity; mucous membranes moist and pink. Dentition is intact. NECK: Shows anterior throat supple without palpable lymphadenopathy noted. Swallow reflex symmetrical. CHEST: Shows normal on inspection. Breath sounds are clear bilaterally. HEART: Shows S1, S2 clear. No murmurs auscultated. ABDOMEN: Obese, soft, nontender, nondistended. BACK: Shows spine grossly in the midline, slight exaggerated thoracic kyphosis and minor flattening of lumbar lordotic curvature. Lumbar paraspinous muscle shows symmetrical on inspection, on palpation shows some moderate tenderness diffusely bilaterally in the middle and lower distribution of paraspinous muscles, but symmetrical without evidence of atrophy, hypertrophy, no trigger points or radiation of pain. The patient does show good rotational motion of lumbar spine, both laterally as well as extension and flexion without difficulty. No tenderness over the spinous processes, sacrum or sacroiliac regions. EXTREMITIES: Lower extremities show deep tendon reflexes 2+ in the patellar, 1+ tendo-calcaneus tendons. Motor exam is strong with 5/5 dorsiflexion, extension, quadriceps and hamstring flexion symmetrical. Peripheral pulses are 1+ posterior tibia. No peripheral edema bilaterally. Options were discussed with the patient. The patient's old chart was reviewed as her current medication regimen updated. Current review of systems updated today as well. We will proceed with a lumbar epidural steroid injection today with fluoroscopic guidance. Risks were discussed including but not limited to bleeding, infection, possibility of epidural hematoma, subsequent neurological compromise, dural puncture, headaches, spinal cord and/or nerve damage, side effects of steroid medication and poor results regarding pain control. The patient understands and wished to proceed. The patient will return to clinic in approximately 2 weeks for followup. She was counseled on return appointment, activity level and side effects to be aware of. DIAGNOSES: Lumbar radiculopathy with lumbar degenerative disk disease. PROCEDURE: Lumbar epidural steroid injection, translaminar approach L5-S1 level using C-arm fluoroscopic guidance under sterile prep and drape using local anesthetic. MEDICATION INJECTED: A total of 120 mg Depo-Medrol plus 10 mL of preservative-free normal saline and 2 mL of contrast. CONDITION AT DISCHARGE: Stable. The patient tolerated the procedure well, had no complications. DAVID MCHUGH MD DR: ABE/dedrick JOB#: [id number] / [id number]
== END ==
LOC: PNCL 11:00
PROVIDERS: ATTEND Anesthesiology
DX: M51.16 Intervertebral disc disorders with radiculopathy, lumbar region (principal)
CPT/HCPCS: 62323; J1030; J1040; Q9965

== ENCOUNTER → 2020-02-02 | Outpatient (CLI) | payer BC ==
[2018-12-26 18:23] VITALS: BP 127/63
[~2020-02-02] MED LIST changes: -PREG50CA PO; +PREG50CA91 PO
--- NOTE | 2020-02-02 13:59 | PAIN ---
DATE OF SERVICE: 02/02/2020 PROGRESS NOTE FOR PAIN CLINIC DIAGNOSES: 1. Lumbar radiculopathy with lumbar degenerative disk disease. 2. Cervical radiculopathy with cervical degenerative disk disease. 3. Right shoulder joint pain. HISTORY OF PRESENT ILLNESS: The patient is a 64-year-old female who returns for followup status post lumbar epidural steroid injection x 1 on 11/03/2019. The patient reports she did very well with about 80-85% improvement in the low back and bilateral lower extremities. The patient reports the pain is returning now slowly. Initially, she was increasing distance walking, doing household activities and work activities, traveling with greater ease and comfort, now reports pain is returning in the low back, bilateral lower extremities, posterior gluteus, posterior thighs, posterior calves without loss of motor function, but significant pain with walking and standing. The patient reports the pain is a 10 on a scale of 10 at its worst, 8 on average, 6 at its least over the past week and is a 6 today. The patient reports no new motor or sensory deficits, no new bowel or bladder incontinence or other complaints. PHYSICAL EXAMINATION: VITAL SIGNS: The patient's blood pressure is 149/81, pulse is 81, respirations 18, temperature 98.6 degrees Fahrenheit, height is 5 feet 3 inches, weighs 192 pounds. GENERAL: The patient is awake, alert, oriented, appropriate, very pleasant demeanor. HEENT: Shows normocephalic, atraumatic. Extraocular movements are intact and symmetrical. Oral cavity shows mucous membranes moist and pink. Dentition is intact. NECK: Shows anterior throat supple without palpable lymphadenopathy noted. Swallow reflex symmetrical. CHEST: Shows normal on inspection. Breath sounds are clear bilaterally. No rales, rhonchi or wheezes auscultated. HEART: Shows S1, S2 clear. No murmurs auscultated. ABDOMEN: Soft, nontender, nondistended. No palpable organomegaly is noted. There is no rebound or guarding demonstrated. BACK: Shows spine grossly in the midline. Normal appearing thoracic kyphosis and minor flattening of lumbar lordotic curvature. Lumbar paraspinous muscle shows symmetrical on inspection, on palpation shows some moderate tenderness diffusely bilaterally, but only diffusely without significant radiation. The patient has good rotational motion of lumbar spine, both laterally as well as extension and flexion without significant increase in pain. EXTREMITIES: The patient's lower extremities show deep tendon reflexes at 2+ in the patellar, 1+ tendo-calcaneus tendons. Motor exam is strong with 5/5 dorsiflexion, extension, quadriceps and hamstring flexion symmetrical. Peripheral pulses are 1+. No peripheral edema bilaterally. Options were discussed with the patient. The patient's old chart was reviewed as her current medication regimen updated. Current review of systems updated today as well. We will proceed with a second in a series of lumbar epidural steroid injection today with fluoroscopic guidance. Risks were again discussed including, but not limited to bleeding, infection, possibility of epidural hematoma, subsequent neurological compromise, dural puncture, headaches, spinal cord and/or nerve damage, side effects of steroid medication and poor results regarding pain control. The patient understands and wished to proceed. The patient will return to clinic in approximately 2 weeks for followup. She was counseled on return appointment, activity level and side effects to be aware of. DIAGNOSIS: Lumbar radiculopathy with lumbar degenerative disk disease. PROCEDURE: Lumbar epidural steroid injection, translaminar approach L5-S1 level using C-arm fluoroscopic guidance under sterile prep and drape using local anesthetic. MEDICATION INJECTED: A total of 120 mg Depo-Medrol plus 10 mL of preservative-free normal saline and 2 mL of contrast. CONDITION AT DISCHARGE: Stable. The patient tolerated procedure well, had no complications. DAVID MCHUGH MD DR: ABE/dedrick JOB#: [id number] / [id number]
== END | disposition home or self-care (01) ==
LOC: PNCL 13:05
PROVIDERS: ATTEND Anesthesiology
DX: M51.16 Intervertebral disc disorders with radiculopathy, lumbar region (principal); M50.10 Cervical disc disorder with radiculopathy, unspecified cervical region; M25.511 Pain in right shoulder; Z88.8 Allergy status to other drugs, medicaments and biological substances; Z79.899 Other long term (current) drug therapy
CPT/HCPCS: 62323; J1030; J1040; Q9965

== ENCOUNTER → 2020-03-13 | Outpatient (CLI) | payer BC ==
[2018-12-26 18:23] VITALS: BP 127/63
[~2020-03-13] MED LIST changes: +HYDR-2145 PO; -IOHEXOL 180 MG/ML 10 ML VIAL. ONE; +LOSA25TA54 PO; +OMEP20TA63 PO; -methylPREDNISolone ACETATE 40 MG/ML VIAL. ONE; -methylPREDNISolone ACETATE 80 MG/ML VIAL. ONE
[2020-03-13 09:38] LABS: HEMATOCRIT 37.4 % (36.0-47.0); HEMOGLOBIN 12.4 g/dL (12.0-15.5); RED BLOOD COUNT 4.18 x10^6/uL (3.50-5.40); RED CELL DISTRIBUTION WIDTH 14.6 % (11.5-14.5); WHITE BLOOD COUNT 8.3 x10^3/uL (4.0-11.0)
[2020-03-13 09:56] LABS: ALBUMIN 3.5 g/dL (3.4-5.0); ALBUMIN/GLOBULIN RATIO 0.8 (1.0-1.7); CALCIUM 9.9 mg/dL (8.5-10.1); CREATININE 0.7 mg/dL (0.6-1.0); GFR 102.3; POTASSIUM 3.2 mmol/L (3.5-5.1); TOTAL BILIRUBIN 0.2 mg/dL (0.2-1.0); TOTAL PROTEIN 7.9 g/dL (6.4-8.2)
[2020-03-13 09:58] LABS: CHOLESTEROL/HDL RATIO 4.5
[2020-03-14 03:08] LABS: HEMOGLOBIN A1C 6.2 % (4.8-5.6)
== END | disposition home or self-care (01) ==
LOC: LAB 09:03
PROVIDERS: ATTEND Family Medicine
DX: E78.5 Hyperlipidemia, unspecified (principal); E11.9 Type 2 diabetes mellitus without complications; R74.0 Nonspecific elevation of levels of transaminase and lactic acid dehydrogenase [LDH]
CPT/HCPCS: 36415; 80053; 80061; 83036; 85027; 86803

== ENCOUNTER → 2020-03-30 | Outpatient (CLI) | payer BC ==
[2018-12-26 18:23] VITALS: BP 127/63
[~2020-03-30] MED LIST changes: +IOHEXOL 180 MG/ML 10 ML VIAL. ONE; +methylPREDNISolone ACETATE 40 MG/ML VIAL. ONE; +methylPREDNISolone ACETATE 80 MG/ML VIAL. ONE
--- NOTE | 2020-03-30 11:23 | PDOC ---
Progress Note - Pain Clinic Date of Service: DOS: DATE: 03/30/20 TIME: 11:19 Diagnosis: Dx: Lumbar radiculopathy with lumbar degenerative disc disease Cervical radiculopathy Right shoulder joint pain History or Present Illness: HPI: 64-year-old female returns follow-up status post lumbar epidural straight injections x2. Last seen February 02, 2020 patient did very well with about 85% improvement until the last week or 2 the pain is beginning to return of the low back and bilateral lower extremities posterior gluteus posterior thighs posterior calves worse with walking standing changing positions better with sitting or laying down. Patient which does not awaken her from sleep. Patient rates her pain as a 10 on scale 10 is worse the past week 8 on average 7 its least is a 7 today patient which is stabbing aching sharp radiating coming more constant in the low back patient ports initially she was doing much better distance walking doing work activities household activities greater ease and comfort travel with greater ease as well. Now the pain is beginning to return. Patient reports no motor deficits but significant fatigability of the lower extremities bilaterally. Physical Exam: VS: Blood pressure is 141/77 pulse 76 respirations 20 temperature 98.1 F weight is 195 pounds PE: PHYSICAL EXAMINATION: GENERAL: The patient is awake, alert, oriented, appropriate, very pleasant demeanor HEENT: Shows normocephalic, atraumatic. Extraocular movements are intact and symmetrical. NECK: Shows anterior throat supple without palpable lymphadenopathy noted. Swallow reflex symmetrical. CHEST: Shows normal on inspection. Breath sounds are clear bilaterally, no rales rhonchi or wheezes auscultated. HEART: Shows S1, S2 clear. No murmurs auscultated. ABDOMEN: Soft, nontender, nondistended. No palpable organomegaly is noted. No rebound or guarding demonstrated. BACK: Shows spine grossly in the midline. Normal-appearing cervical lordotic curvature. There is slightly increased thoracic kyphosis, some minor flattening of the lumbar lordotic curvature. Lumbar paraspinous muscles show symmetrical on inspection, on palpation shows some moderate tenderness diffusely throughout the upper, middle and lower distribution of the paraspinous muscles bilaterally, but without specific trigger points, without radiation of pain. The patient has good rotational motion of the lumbar spine, both laterally as well as extension and flexion without significant difficulty. No tenderness over the spinous pro cesses, sacrum or sacroiliac regions. EXTREMITIES: Lower extremities show deep tendon reflexes 2+ in the patellar and tendo calcaneus tendons. Motor exam is 5 on a scale of 5 with right dorsiflexion, extension, quadriceps and hamstring flexion and 5/5 on the left. Peripheral pulses are 1+ posterior tibial. No peripheral edema is noted bilaterally. Lower extremities are warm and dry to touch, equal in color and appearance. SKIN: Shows warm and dry, good turgor. No edema. No sores, rashes or bruising throughout. Procedure: Procedure: Options were discussed with patient. Patient chart was reviewed as her current medication regimen updated current review of systems updated today as well we will proceed with a third in the series lumbar epidural steroid injection today with fluoroscopic guidance. Risks were discussed including but not limited to: Bleeding, infection, possibility of epidural hematoma and subsequent neurological compromise, dural puncture, headaches, spinal cord and/or nerve damage, side effects of steroid medication, and poor results regarding pain control. Patient understands wished to proceed. Patient will return to the clinic in approximately 2 weeks for follow-up. Patient was counseled as to return appointment activity level and side effects to be aware of. Medication Injected: Med Injected: Procedure is lumbar epidural steroid injection under local anesthetic using sterile prep and drape at the L5-S1 level using C-arm fluoroscopic guidance in both AP and lateral views medications injected is 120 mg Depo-Medrol + 10 mL preservative-free normal saline and 2 mL contrast- condition at discharge is stable patient tolerated procedure well had no complications. Condition at Discharge: Condition at Discharge: Condition at discharge stable patient tolerated procedure well had no complications. DAVID MCHUGH MD Mar 30, 2020 11:23
== END | disposition home or self-care (01) ==
LOC: PNCL 10:17
PROVIDERS: ATTEND Anesthesiology
DX: M51.16 Intervertebral disc disorders with radiculopathy, lumbar region (principal); M25.511 Pain in right shoulder; I10 Essential (primary) hypertension; E11.9 Type 2 diabetes mellitus without complications; E78.00 Pure hypercholesterolemia, unspecified; Z88.8 Allergy status to other drugs, medicaments and biological substances; Z79.82 Long term (current) use of aspirin; Z79.899 Other long term (current) drug therapy; Z82.49 Family history of ischemic heart disease and other diseases of the circulatory system; Z79.84 Long term (current) use of oral hypoglycemic drugs
CPT/HCPCS: 62323; J1030; J1040; Q9965

== ENCOUNTER → 2020-06-06 | Outpatient (CLI) | payer BC ==
[2018-12-26 18:23] VITALS: BP 127/63
[~2020-06-06] MED LIST changes: +BUSP15TA PO
--- NOTE | 2020-06-06 09:55 | PDOC ---
Progress Note - Pain Clinic Date of Service: DOS: DATE: 06/06/20 TIME: 09:52 Diagnosis: Dx: Lumbar radiculopathy with lumbar degenerative disc disease Cervical radiculopathy Right shoulder joint pain History or Present Illness: HPI: 65-year-old female returns follow-up status post lumbar epidural steroid injections most recently March 30. Patient ports did very well about 80% improvement pain returning now over the past few weeks in the low back and bilateral lower extremities posterior gluteus posterior thigh posterior calves to the ankles bilaterally patient reports is worse with walking standing changing positions better with sitting or laying down rates her pain is a 10 on scale 10 is worst over the past week 8 on average 7 its least is an 8 today. Patient reports initially she is doing much better with distance walking doing work activities household activities traveling with greater ease and comfort now the pain is returning as noted. Patient scribes pain is aching shooting radiating sometimes severe and constant. Patient reports no new motor or sensory deficits no new bowel or bladder incontinence or other complaints. Physical Exam: VS: Blood pressure is 151/81 pulse 74 respirations 16 temperature is 98.6 F height 5 feet 3-1/2 inches weight is 196 pounds PE: PHYSICAL EXAMINATION: GENERAL: The patient is awake, alert, oriented, appropriate, very pleasant demeanor HEENT: Shows normocephalic, atraumatic. Extraocular movements are intact and symmetrical. NECK: Shows anterior throat supple without palpable lymphadenopathy noted. CHEST: Shows normal on inspection. Breath sounds are clear bilaterally. HEART: Shows S1, S2 clear. No murmurs auscultated. ABDOMEN: Soft, nontender, nondistended, obese. No palpable organomegaly is noted. No rebound or guarding demonstrated. BACK: Shows spine grossly in the midline. Normal-appearing cervical lordotic curvature. There is slightly increased thoracic kyphosis, some minor flattening of the lumbar lordotic curvature. Lumbar paraspinous muscles show symmetrical on inspection, on palpation shows some moderate tenderness diffusely throughout the upper, middle and lower distribution of the paraspinous muscles bilaterally without specific trigger points, without radiation of pain. The patient has good rotational motion of the lumbar spine, both laterally as well as extension and flexion without significant difficulty. No tenderness over the spinous processes, sacrum or sacroiliac regions. EXTREMITIES: Lower extremities show deep tendon reflexes 2+ in the patellar and tendo calcaneus tendons. Motor exam is 5 on a scale of 5 with right dorsiflexi on, extension, quadriceps and hamstring flexion and 5/5 on the left. Peripheral pulses are 1+ posterior tibial. No peripheral edema is noted bilaterally. Lower extremities are warm and dry to touch, equal in color and appearance. SKIN: Shows warm and dry, good turgor. No edema. No sores, rashes or bruising throughout. Procedure: Procedure: Procedure discussed with the patient. Patient chart was reviewed as her current medication regimen updated current review of systems updated today as well. We will proceed with a first in the series lumbar epidural steroid injection today with fluoroscopic guidance. Risks were discussed including but not limited to: Bleeding, infection, possibility of epidural hematoma and subsequent neurological compromise, dural puncture, headaches, spinal cord and/or nerve damage, side effects of steroid medication, and poor results regarding pain control. Patient understands wished to proceed. Patient will return to clinic in possibly 2 weeks for follow-up with counselors return appointment activity level and side effects to be aware of. Medication Injected: Med Injected: Procedure is lumbar epidural steroid injection under local anesthetic using sterile prep and drape at the L5-S1 level using C-arm fluoroscopic guidance in both AP and lateral views medications injected is 120 mg Depo-Medrol + 10 mL preservative-free normal saline and 2 mL contrast- condition at discharge is stable patient tolerated procedure well had no complications. Condition at Discharge: Condition at Discharge: Condition at discharge stable, patient tolerated well had no complications. DAVID MCHUGH MD Jun 06, 2020 09:55
== END | disposition home or self-care (01) ==
LOC: PNCL 09:07
PROVIDERS: ATTEND Anesthesiology
DX: M51.16 Intervertebral disc disorders with radiculopathy, lumbar region (principal); M25.511 Pain in right shoulder; I10 Essential (primary) hypertension; F41.9 Anxiety disorder, unspecified; F32.9 Major depressive disorder, single episode, unspecified; E78.00 Pure hypercholesterolemia, unspecified; Z90.49 Acquired absence of other specified parts of digestive tract; Z98.890 Other specified postprocedural states; Z79.82 Long term (current) use of aspirin; Z79.899 Other long term (current) drug therapy; Z88.8 Allergy status to other drugs, medicaments and biological substances; Z88.1 Allergy status to other antibiotic agents
CPT/HCPCS: 62323; J1030; J1040; Q9965

== ENCOUNTER 2020-07-18 06:01 | Emergency (ER) | payer BC ==
[~2020-07-18] VITALS: Ht 160 cm; Wt 89.5 kg
[~2020-07-18 06:01] MED LIST changes: -HYDR50TA6 PO; +HYDR50TA9 PO; -IOHEXOL 180 MG/ML 10 ML VIAL. ONE; -methylPREDNISolone ACETATE 40 MG/ML VIAL. ONE; -methylPREDNISolone ACETATE 80 MG/ML VIAL. ONE
[2020-07-18] MEDS ORDERED: diazePAM 5 MG TABLET PO ONE (07:30)
[2020-07-18] MEDS ORDERED: KETOROLAC 60 MG/2 ML VIAL. IM ONE (07:30)
--- NOTE | 2020-07-18 07:48 | ED.ADGEN ---
Past Medical History Past Medical History: Anxiety, Depression, Diabetes-Type II, High Cholesterol, Hypertension Additional Past Medical Histor: CHRONIC BACK PAIN Past Surgical History: Cervical Fusion, Cholecystectomy, Tonsillectomy, Tubal ligation, Other Additional Past Surgical Histo: LEFT ELBOW, BRAIN ANEURYSM, NECK SX Smoking Status: Never Smoker Alcohol Use: Occasionally Drug Use: None General Adult EDM: Chief Complaint: SHOULDER INJURY HPI: HPI: Patient is a 65-year-old female who presents to the emergency room complaining of right shoulder pain. states that this pain started around [place] and has progressively gotten worse. He noticed that he got significantly worse on Friday. Patient states she believes the pain started on Friday. She denies any trauma or heavy lifting. The pain starts in the back of her shoulder and radiates down her arm. She also has some pain to the right side of her ribs. She denies any cough, shortness of breath, fever, chills, sweats, nausea, vomiting, abdominal pain. She does not have any weakness in that limb. She is never had pain like this previously. She does take pain medicine every day for chronic back pain. Review of Systems: Review of Systems: Complete ROS is negative unless otherwise documented in HPI Current Medications: Current Medications Medications (Trade) Dose Ordered Sig/Salvatore Start Time Stop Time Status Last Admin Dose Admin Diazepam (Valium) 5 mg 1X ONCE 07/18/20 07:30 07/18/20 07:31 DC 07/18/20 08:20 5 MG Ketorolac Tromethamine (Toradol Im) 60 mg 1X ONCE 07/18/20 07:30 07/18/20 07:31 DC 07/18/20 08:21 60 MG Lidocaine (Lidoderm) 1 patch DAILY 07/18/20 09:00 07/18/20 10:24 DC 07/18/20 08:19 1 PATCH Miscellaneous (Lidoderm Patch Removal) 1 ea QHS 07/18/20 21:00 07/18/20 10:24 DC Allergies: Allergies: Allergies Coded Allergies Type Severity Reaction Last Updated Verified cefuroxime Allergy Intermediate 04/23/16 Yes coconut oil Allergy Intermediate Rash 02/10/14 Yes metronidazole Allergy Intermediate HIVES 08/26/17 Yes estrogens, conjugated Adverse Reaction Intermediate BLEEDING 08/26/17 Yes Physical Exam: PE: General: Awake, alert, NAD. Well Nourished, well hydrated. Cooperative HEENT: Atraumatic, EOMI, PERRL, airway patent, moist oral mucosa Neck: Supple, trachea midline Respiratory: CTA bilaterally, normal effort, no wheezing/crackles CV: RRR, no murmur, cap refill <2 GI: Soft, nondistended, nontender, no masses MSK: No obvious deformities, tenderness along the right lateral ribs and right posterior shoulder Skin: Warm, dry, intact Neuro: A&O x3, speech NL, sensory and motor grossly intact, no focal deficits Psych: Normal affect, normal mood, not suicidal or homicidal Current Patient Data: Vital Signs: Vital Signs Date Time Temp Pulse Resp B/P (MAP) Pulse Ox O2 Delivery O2 Flow Rate FiO2 07/18/20 08:23 189/78 (115) 07/18/20 06:21 97.7 91 18 95 Room Air 97.7 EKG: EKG: [] Heart Score: Risk Factors: Risk Factors: DM, Current or recent (<one month) smoker, HTN, HLP, family h istory of CAD, obesity. Risk Scores: Score 0 - 3: 2.5% MACE over next 6 weeks - Discharge Home Score 4 - 6: 20.3% MACE over next 6 weeks - Admit for Clinical Observation Score 7 - 10: 72.7% MACE over next 6 weeks - Early Invasive Strategies Radiology/Procedures: Radiology/Procedures: [] Course & Med Decision Making: Course & Med Decision Making Pertinent Labs and Imaging studies reviewed. (See chart for details) Patient is a 65-year-old female who presents to the emergency room with atraumatic shoulder and rib pain. Patient does not appear to have viral syndrome and her rib pain is likely secondary to the issue going on with her shoulder. Patient's pain is suggestive of a cervical radiculopathy. She will be treated symptomatically here in the emergency room. X-rays are ordered to rule out any obvious signs of fracture, dislocation, mass. Patient's test results and vitals while in the ED were fully reviewed and discussed with the patient. Patient is stable and at this time does not need admission to the hospital. We have discussed strict return precautions and the importance of following up with their Primary Care Physician. Patient stated understanding and was given an opportunity to ask any questions. Patient is in agreement with plan. Amalia Disclaimer: Amalia Disclaimer: This electronic medical record was generated, in whole or in part, using a voice recognition dictation system. Departure Departure Impression: Primary Impression: Shoulder pain Disposition: 01 DC HOME SELF CARE/HOMELESS Condition: STABLE Referrals: JORGE ROSENBERG MD (PCP) JOSE RAFAEL KLEIN MD Patient Instructions: Cervical Radiculopathy, Shoulder Joint Replacement, Care After Scripts Methocarbamol (ROBAXIN-750) 750 Mg Tablet 1 TAB PO TID PRN for MUSCLE SPASMS for 10 Days, #30 TAB 0 Refills Prov: SUKHDEV MIRANDA MD 07/18/20 Methylprednisolone (MEDROL) 4 Mg Tab.ds.pk 1 PKG PO UD for inflammation, #1 PKG Prov: SUKHDEV MIRANDA MD 07/18/20 SUKHDEV MIRANDA MD Jul 18, 2020 07:48
--- NOTE | 2020-07-18 07:57 | RAD ---
PROCEDURE: XR SHOULDER_RIGHT 2+ VIEWS, XR CHEST 2V STUDY DATE: 07/18/2020 CLINICAL INDICATION / HISTORY: Reason: pain, no injury / Spl. Instructions: / History: . TECHNIQUE: AP internal and external rotation views with a Y- view were obtained. COMPARISON: Right shoulder x-rays of 09/01/2018 FINDINGS: No fracture, dislocation or bone destruction is identified. There are moderately advanced degenerative changes at the right AC joint. Dense calcifications are seen in relation to the rotator cuff insertion. IMPRESSION: 1. No acute bony abnormality. 2. Findings consistent with calcific tendinitis. 3. Moderate acromioclavicular degenerative change. EXAM: XR SHOULDER_RIGHT 2+ VIEWS, XR CHEST 2V INDICATION: Reason: pain, no injury / Spl. Instructions: / History: . TECHNIQUE: PA and lateral views COMPARISON: None FINDINGS: The heart size is normal. The great vessels appear unremarkable. There is no hilar or mediastinal mass. Multiple calcified right hilar lymph nodes are present. The lungs are clear. There is no pleural effusion or pneumothorax. There are no significant osseous abnormalities. Postoperative changes in the cervical spine with anterior and posterior cervical fusion are redemonst rated. IMPRESSION: No active cardiopulmonary disease. Electronically signed by: Sabiha Elizondo MD (07/18/2020 7:55 AM) [id number]
[2020-07-18 08:23] VITALS: BP 189/78
[2020-07-18] MEDS ORDERED: LIDOCAINE (700MG/PATCH) PATCH. TD SCH (09:00)
[2020-07-18] MEDS ORDERED: METH-38 PO (10:07)
[2020-07-18] MEDS ORDERED: METH4TAB2 PO (10:07)
[2020-07-18] MEDS ORDERED: PATCH REMOVAL. MC SCH (21:00)
[2020-11-01] MEDS ORDERED: VENL150C PO (16:53)
== END 2020-07-18 10:24 | disposition home or self-care (01) ==
LOC: ER 06:01
DX: M25.511 Pain in right shoulder (principal); R07.81 Pleurodynia; E11.9 Type 2 diabetes mellitus without complications; E78.00 Pure hypercholesterolemia, unspecified; I10 Essential (primary) hypertension; G89.29 Other chronic pain; Z88.3 Allergy status to other anti-infective agents; Z91.018 Allergy to other foods; Z88.8 Allergy status to other drugs, medicaments and biological substances
CPT/HCPCS: 71046; 73030; 96372; 99284; J1885

== ENCOUNTER → 2020-08-18 | Outpatient (CLI) | payer BC ==
[~2020-08-18] MED LIST changes: +BUPIVACAINE MPF 0.25% 30 ML VIAL. ONE; +IOHEXOL 180 MG/ML 10 ML VIAL. ONE; +METH-38 PO; +METH4TAB2 PO; +methylPREDNISolone ACETATE 80 MG/ML VIAL. ONE
--- NOTE | 2020-08-18 09:23 | PDOC ---
Progress Note - Pain Clinic Date of Service: DOS: DATE: 08/18/20 TIME: 09:17 Diagnosis: Dx: Lumbar radiculopathy with lumbar degenerative disc disease Cervical radiculopathy Right shoulder joint pain with osteoarthritis History or Present Illness: HPI: 65-year-old female returns for follow-up status post lumbar epidural steroid injection last seen June 06, 2020. Patient reports he did very well about 80% improvement in her low back pain but her chief complaint is right shoulder pain she was having some pain on her last visit but this got worse over the past week or so when she called earlier to be seen today. Patient reports still significant pain with lifting items range of motion repetitive motions with the right arm especially when lifting things from the side with her arm extended inferiorly. Patient reports it radiates into the rest of the arm and the hand patient did have an MRI scan of the neck and shoulder which is pending done at [facility] last week but we do not have the results of that at the time of this dictation. Patient rates her pain as a 10 on scale 10 at all times worst least an average and is a 10 today. Patient which is tingling in the hand unbearable at times aching and dull in the shoulder itself. Patient reports no loss of motor function and has good range of motion with the right upper extremity. Left shoulder and upper extremity has no complaints. Physical Exam: VS: Blood pressure is 142/71 pulse 78 respirations are 18 temperature 98.5 F weight is 191 pounds PE: PHYSICAL EXAMINATION: GENERAL: The patient is awake, alert, oriented, appropriate, very pleasant demeanor HEENT: Shows normocephalic, atraumatic. Extraocular movements are intact and symmetrical. NECK: Shows anterior throat supple without palpable lymphadenopathy noted. Swallow reflex symmetrical. CHEST: Shows normal on inspection. Breath sounds are clear bilaterally. HEART: Shows S1, S2 clear. No murmurs auscultated. ABDOMEN: Soft, nontender, nondistended, obese. No palpable organomegaly is noted. BACK: Shows spine grossly in the midline. Normal-appearing cervical lordotic curvature. Cervical paraspinous muscles show symmetrical inspection palpation shows some minor tenderness inferior aspect the cervical paraspinous muscles more on the right than the left but without asymmetry without trigger points or radiation of pain. There is slightly increased thoracic kyphosis, some minor flattening of the lumbar lordotic curvature. Lumbar paraspinous muscles show symmetrical on inspection, on palpation shows some moderate tenderness diffusely throughout the upper, middle and lower distribution of the paraspinous muscles, but without specific trigger points, without radiation of pain. The patient has good rotational motion of the lumbar spine, both laterally as well as extension and flexion without significant difficulty. No tenderness over the spinous processes, sacrum or sacroiliac regions. EXTREMITIES: Upper extremity show deep tendon reflexes 2+ in the bicep triceps t endons are equal motor exam is strong with security orderly strength rated 5 out of 5 and symmetrical peripheral pulses are 2+ radial no peripheral edema is noted. Patient's right shoulder shows significant tenderness over the acromioclavicular joint with palpation both superiorly as well as posteriorly. Range of motion is good with good extension as well as reaching her hand above her head without significant difficulty. Left side is nontender and full rotation of motion. Lower extremities show deep tendon reflexes are 2+ in the patellar and tendo calcaneus tendons. Motor exam is 5 on a scale of 5 with right dorsiflexion, extension, quadriceps and hamstring flexion and 5/5 on the left. Peripheral pulses are 1+ posterior tibial. No peripheral edema is noted bilaterally. Lower extremities are warm and dry to touch, equal in color and appearance. SKIN: Shows warm and dry, good turgor. No edema. No sores, rashes or bruising throughout. Procedure: Procedure: Options were discussed with the patient. Patient's old chart was reviewed as her current medication regimen updated current review of systems updated today as well. We will treat with a right-sided acromioclavicular joint today with fluoroscopic guidance. Risks were discussed including not limited to bleeding infection possibility of intravascular injection sequelae spread to local anesthetic and numbness side effects steroid medication exposure fluoroscopy and poor results regarding pain control. Patient understands wished to proceed. Patient will return to clinic in approximately 1 month or as necessary, like to make the appointment as needed. She was counseled as to activity level as well as side effects to be aware of. Medication Injected: Med Injected: Under sterile prep and drape patient in supine position using C-arm fluoroscopic guidance patient's right shoulder was visualized and using a 25-gauge 1-1/2 inch needle was inserted into the acromioclavicular joint without difficulty. Asp iration was noted to be negative and 1.5 cc of contrast was injected with good spread within the acromioclavicular joint. At this time solution of 3 cc 0.25% bupivacaine and 80 mg Depo-Medrol was then injected into the joint. Needle was withdrawn and sterile bandage was applied. Patient tolerated procedure well had no complications. Condition at Discharge: Condition at Discharge: Condition at discharge stable, patient tolerated the procedure well had no complications. DAVID MCHUGH MD Aug 18, 2020 09:23
--- NOTE | 2020-08-18 09:23 | PDOC4 ---
PROCEDURE Procedure Patient was consented for right acromioclavicular joint injection. Risks were discussed including but not limited to bleeding infection possibility of intravascular injection sequelae spread local acetic numbness side effects steroid medication and portal scarring pain control. Under sterile prep and drape patient in supine position using C-arm fluoroscopic guidance patient's right shoulder was visualized and using a 25-gauge 1-1/2 inch needle was inserted into the acromioclavicular joint without difficulty. Aspiration was noted to be negative and 1.5 cc of contrast was injected with good spread within the acromioclavicular joint. At this time solution of 3 cc 0.25% bupivacaine and 80 mg Depo-Medrol was then injected into the joint. Needle was withdrawn and sterile bandage was applied. Patient tolerated procedure well had no complications. DAVID MCHUGH MD Aug 18, 2020 09:23
== END | disposition home or self-care (01) ==
LOC: PNCL 08:47
PROVIDERS: ATTEND Anesthesiology
DX: M19.011 Primary osteoarthritis, right shoulder (principal); M51.36 Other intervertebral disc degeneration, lumbar region; M54.12 Radiculopathy, cervical region; Z98.890 Other specified postprocedural states; Z88.1 Allergy status to other antibiotic agents; Z88.8 Allergy status to other drugs, medicaments and biological substances; Z91.048 Other nonmedicinal substance allergy status
CPT/HCPCS: 20605; 77002; J1040; J3490; Q9965

== ENCOUNTER → 2020-09-11 | Outpatient (CLI) | payer BC ==
[~2020-09-11] MED LIST changes: -BUPIVACAINE MPF 0.25% 30 ML VIAL. ONE; +VENL150C PO; +methylPREDNISolone ACETATE 40 MG/ML VIAL. ONE
--- NOTE | 2020-09-11 10:57 | PDOC4 ---
PROCEDURE Procedure Patient was consented for lumbar epidural steroid injection. Risks were dis cussed including but not limited to: Bleeding, infection, possibility of epidural hematoma and subsequent neurological compromise, dural puncture, headaches, spinal cord and/or nerve damage, side effects of steroid medication, and poor results regarding pain control. Patient understands and wished to proceed. Procedure is lumbar epidural steroid injection under local anesthetic using sterile prep and drape at the L5-S1 level using C-arm fluoroscopic guidance in both AP and lateral views medications injected is 120 mg Depo-Medrol + 10 mL preservative-free normal saline and 2 mL contrast- condition at discharge is stable patient tolerated procedure well had no complications. DAVID MCHUGH MD Sep 11, 2020 10:57
--- NOTE | 2020-09-11 10:57 | PDOC ---
Progress Note - Pain Clinic Date of Service: DOS: DATE: 09/11/20 TIME: 10:54 Diagnosis: Dx: Lumbar radiculopathy with lumbar degenerative disc disease Cervical radiculopathy Right shoulder joint pain with osteoarthritis History or Present Illness: HPI: 65-year-old female returns follow-up status post lumbar epidural to injection x1 and right acromioclavicular joint. Patient reports doing much better after the last injection the pain returning down the low back and the bilateral lower extremities. Patient ports her right shoulder is doing much better also. Patient reports her pain now is in the low back bilateral lower extremities posterior gluteus posterior thighs posterior calves radiating in a radicular fashion mostly posteriorly. Patient reports worse with walking standing changing positions initially she is doing much better with doing work activities household activities work walking with greater ease and comfort travel with greater ease now the pain is aching and dull in the low back shooting and becoming more constant with walking and standing patient reports her pain is a 10 on scale 10 is worse over the past week 8 on average 6 its least and is a 6 today. Patient reports no new motor or sensory deficits no new bowel or bladder incontinence or other complaints. Physical Exam: VS: Blood pressure is 153/73 pulse 66 respiration 16 temperature 98.3 F weight is 192 pounds PE: PHYSICAL EXAMINATION: GENERAL: The patient is awake, alert, oriented, appropriate, very pleasant demeanor HEENT: Shows normocephalic, atraumatic. Extraocular movements are intact and symmetrical. Oral cavity: Mucous membranes moist and pink. NECK: Shows anterior throat supple without palpable lymphadenopathy noted. Swallow reflex symmetrical. CHEST: Shows normal on inspection. Breath sounds are clear bilaterally, no rales or rhonchi. HEART: Shows S1, S2 clear. No murmurs auscultated. ABDOMEN: Soft, nontender, nondistended, obese. No palpable organomegaly is noted. BACK: Shows spine grossly in the midline. Normal-appearing cervical lordotic curvature. There is increased thoracic kyphosis, some flattening of the lumbar lordotic curvature. Lumbar paraspinous muscles show symmetrical on inspection, on palpation shows some moderate tenderness diffusely throughout the upper, middle and lower distribution of the paraspinous muscles bilaterally, but without specific trigger points, without radiation of pain. The patient has good rotational motion of the lumbar spine, both laterally as well as extension and flexion without significant difficulty. No tenderness over the spinous processes, sacrum or sacroiliac regions. EXTREMITIES: Lower extremities show deep tendon reflexes 1+ in the patellar and tendo calcaneus tendons. Motor exam is 4 on a scale of 5 with right dorsiflexion, extension, quadriceps and hamstring flexion and 5/5 on the left. Peripheral pulses are 1+ posterior tibial. No peripheral edema is noted bilaterally. Lower extremities are warm and dry to touch, equal in color and ap pearance. SKIN: Shows warm and dry, good turgor. No edema. No sores, rashes or bruising throughout. Procedure: Procedure: Options were discussed with the patient. Patient chart reviews her current medication regimen updated current review of systems updated today as well. We will proceed with a second in the series lumbar epidural steroid traction stable fluoroscopic guidance. Risks were discussed including but not limited to: Bleeding, infection, possibility of epidural hematoma and subsequent neurological compromise, dural puncture, headaches, spinal cord and/or nerve damage, side effects of steroid medication, and poor results regarding pain control. Patient understands and wished to proceed. Patient will return to clinic in approximate 2 weeks for follow-up, was counseled as to return appointment activity level and side effects to be aware of. Medication Injected: Med Injected: Procedure is lumbar epidural steroid injection under local anesthetic using sterile prep and drape at the L5-S1 level using C-arm fluoroscopic guidance in both AP and lateral views medications injected is 120 mg Depo-Medrol + 10 mL preservative-free normal saline and 2 mL contrast- condition at discharge is s table patient tolerated procedure well had no complications. Condition at Discharge: Condition at Discharge: Condition at discharge stable, patient tolerated procedure well and had no complications. DAVID MCHUGH MD Sep 11, 2020 10:57
== END | disposition home or self-care (01) ==
LOC: PNCL 10:13
PROVIDERS: ATTEND Anesthesiology
DX: M51.16 Intervertebral disc disorders with radiculopathy, lumbar region (principal); M19.011 Primary osteoarthritis, right shoulder; I10 Essential (primary) hypertension; E78.00 Pure hypercholesterolemia, unspecified; F41.9 Anxiety disorder, unspecified; F32.9 Major depressive disorder, single episode, unspecified; Z90.49 Acquired absence of other specified parts of digestive tract; Z98.890 Other specified postprocedural states; Z79.899 Other long term (current) drug therapy; Z79.82 Long term (current) use of aspirin; Z72.89 Other problems related to lifestyle; Z82.49 Family history of ischemic heart disease and other diseases of the circulatory system; Z88.0 Allergy status to penicillin; Z88.1 Allergy status to other antibiotic agents; Z88.8 Allergy status to other drugs, medicaments and biological substances
CPT/HCPCS: 62323; J1030; J1040; Q9965

== ENCOUNTER → 2020-11-01 | Outpatient (CLI) | payer BC ==
--- NOTE | 2020-11-01 15:00 | PDOC ---
Progress Note - Pain Clinic Date of Service: DOS: DATE: 11/01/20 TIME: 14:58 Diagnosis: Dx: Lumbar radiculopathy with lumbar degenerative disc disease Cervical radiculopathy Right shoulder joint pain with osteoarthritis History or Present Illness: HPI: 65-year-old female returns to follow-up status post lumbar epidural steroid junctions x2. Patient reports very well per last injection about 75% i mprovement for about 3-1/2 weeks the pain is returning down the low back and bilateral lower extremities mostly in the posterior gluteus rating the posterior thighs posterior calves bilaterally right essentially equal to left. Patient reports her pain is a 9 on scale 10 is worse over the past week 7 on average 5 its least and is a 7 today patient reports aching and dull radiating constant can be severe in the low back with activity but not dilatated. Patient reports initially she was doing better with walking and doing household activities work activities traveling with greater ease and comfort. Patient reports no new motor or sensory deficits no new bowel or bladder complaints. Physical Exam: VS: Blood pressure is 118/70 pulse 80 respirations 16 temperature 98.1 F height is 5 3 and half inches weight is 192 pounds PE: PHYSICAL EXAMINATION: GENERAL: The patient is awake, alert, oriented, appropriate, very pleasant demeanor HEENT: Shows normocephalic, atraumatic. Extraocular movements are intact and symmetrical. Oral cavity: Mucous membranes moist and pink. Dentition is in tact. NECK: Shows anterior throat supple without palpable lymphadenopathy noted. Swallow reflex symmetrical. CHEST: Shows normal on inspection. Breath sounds are clear bilaterally. HEART: Shows S1, S2 clear. No murmurs auscultated. ABDOMEN: Soft, nontender, nondistended. No palpable organomegaly is noted. No rebound or guarding demonstrated. BACK: Shows spine grossly in the midline. Normal-appearing cervical lordotic curvature. There is slightly increased thoracic kyphosis, some minor flattening of the lumbar lordotic curvature. Lumbar paraspinous muscles show symmetrical on inspection, on palpation shows some moderate tenderness diffusely throughout the upper, middle and lower distribution of the paraspinous muscles without specific trigger points, without radiation of pain. The patient has good rotational motion of the lumbar spine, both laterally as well as extension and flexion without significant difficulty. EXTREMITIES: Lower extremities show deep tendon reflexes 1+ in the patellar and tendo calcaneus tendons. Motor exam is 4 on a scale of 5 with right dorsiflexion, extension, quadriceps and hamstring flexion and 5/5 on the left. Peripheral pulses are 1+ posterior tibial. No peripheral edema is noted bilaterally. Lower extremities are warm and dry. SKIN: Shows warm and dry, good turgor. No edema. No sores, rashes or bruising throughout. Procedure: Procedure: Options were discussed with patient. Patient chart reviews her current medication regimen updated review systems updated today as well. We will proceed with a third in the series lumbar epidural steroid traction stable fluoroscopic guidance. Risks were discussed including but not limited to: Bleeding, infection, possibility of epidural hematoma and subsequent neurological compromise, dural puncture, headaches, spinal cord and/or nerve damage, side effects of steroid medication, and poor results regarding pain control. Patient understands and wished to proceed. Patient will return to clinic in approximate 2 weeks for follow-up, was counseled as to return appointment activity level and side effects to be aware of. Medication Injected: Med Injected: Procedure is lumbar epidural steroid injection under local anesthetic using sterile prep and drape at the L5-S1 level using C-arm fluoroscopic guidance in both AP and lateral views medications injected is 120 mg Depo-Medrol + 10 mL preservative-free normal saline and 2 mL contrast- condition at discharge is stable patient tolerated procedure well had no complications. Condition at Discharge: Condition at Discharge: Condition at discharge stable, patient already procedure well and had no complications. DAVID MCHUGH MD Nov 01, 2020 15:00
--- NOTE | 2020-11-01 15:01 | PDOC4 ---
PROCEDURE Procedure Patient was consented for lumbar epidural steroid injection. Risks were dis cussed including but not limited to: Bleeding, infection, possibility of epidural hematoma and subsequent neurological compromise, dural puncture, headaches, spinal cord and/or nerve damage, side effects of steroid medication, and poor results regarding pain control. Patient understands and wished to proceed. Procedure is lumbar epidural steroid injection under local anesthetic using sterile prep and drape at the L5-S1 level using C-arm fluoroscopic guidance in both AP and lateral views medications injected is 120 mg Depo-Medrol + 10 mL preservative-free normal saline and 2 mL contrast- condition at discharge is stable patient tolerated procedure well had no complications. DAVID MCHUGH MD Nov 01, 2020 15:01
== END | disposition home or self-care (01) ==
LOC: PNCL 13:38
PROVIDERS: ATTEND Anesthesiology
DX: M51.16 Intervertebral disc disorders with radiculopathy, lumbar region (principal); M19.211 Secondary osteoarthritis, right shoulder; I10 Essential (primary) hypertension; E78.00 Pure hypercholesterolemia, unspecified; F41.9 Anxiety disorder, unspecified; F32.9 Major depressive disorder, single episode, unspecified; Z90.49 Acquired absence of other specified parts of digestive tract; Z98.890 Other specified postprocedural states; Z79.899 Other long term (current) drug therapy; Z79.82 Long term (current) use of aspirin; Z72.89 Other problems related to lifestyle; Z88.1 Allergy status to other antibiotic agents; Z88.8 Allergy status to other drugs, medicaments and biological substances
CPT/HCPCS: 62323; J1030; J1040; Q9965

== ENCOUNTER → 2021-01-31 | Outpatient (CLI) | payer BC ==
[~2021-01-31] MED LIST changes: +BUPIVACAINE MPF 0.25% 10 ML VIAL. ONE; -methylPREDNISolone ACETATE 80 MG/ML VIAL. ONE
--- NOTE | 2021-01-31 16:00 | PDOC ---
Progress Note - Pain Clinic Date of Service: DOS: DATE: 01/31/21 TIME: 15:53 Diagnosis: Dx: Lumbar radiculopathy with lumbar degenerative disc disease Cervical radiculopathy Right shoulder joint pain with osteoarthritis History or Present Illness: HPI: 65-year-old female returns for follow-up status post lumbar epidural steroid injection x3 most recently November 01, 2020 patient did very well your percent improvement for the first few weeks following the injection now about 50% improved but her chief complaint today is right shoulder joint pain patient reports pain only in the top of the shoulder also in the anterior aspect and posterior aspect of the shoulder which is new with rotation of motion and repetitive motions and weightbearing exacerbated the pain significantly. Juwan humphrey had acromioclavicular joint injections in the past with good relief but this is different by her report limited shoulder is hot and on fire shooting into her right arm mostly in the anterior deltoid and into the anterior biceps. Patient reports no loss of motor function but significant fatigability with any repetitive motions as difficulty with driving reaching over her head with her right hand reaching forward and with weightbearing. She reports pain is a 9 on scale 10 is worse over the past week 7 on average 5 its least is a 7 today patient scribes aching and dull can be constant and severe. Patient reports pain low back and bilateral lower extremities that has had previously in the posterior gluteus posterior thighs posterior calves but this is secondary to her shoulder joint pain which is much more intense. Physical Exam: VS: Blood pressure is 135/71 pulse 85 respirations 16 temperature is 98.1 F height is 5 feet 3 inches weight is 184 pounds PE: PHYSICAL EXAMINATION: GENERAL: The patient is awake, alert, oriented, appropriate, very pleasant in demeanor HEENT: Shows normocephalic, atraumatic. Extraocular movements are intact and symmetrical. Oral cavity: Mucous membranes moist and pink. NECK: Shows anterior throat supple without palpable lymphadenopathy noted. Swallow reflex symmetrical. CHEST: Shows normal on inspection. Breath sounds are clear bilaterally, no rales or. HEART: Shows S1, S2 clear. No murmurs auscultated. ABDOMEN: Soft, nontender, nondistended, obese. BACK: Shows spine grossly in the midline. Normal-appearing cervical lordotic curvature. There is slightly increased thoracic kyphosis, some minor flattening of the lumbar lordotic curvature. Lumbar paraspinous muscles show symmetrical on inspection, on palpation shows some moderate tenderness diffusely throughout the upper, middle and lower distribution of the paraspinous muscles, but without specific trigger points, without radiation of pain. The patient has good rotat ional motion of the lumbar spine, both laterally as well as extension and flexion without significant difficulty. EXTREMITIES: Lower extremities show deep tendon reflexes 1+ in the patellar and tendo calcaneus tendons. Motor exam is 4 on a scale of 5 with right dorsiflexion, extension, quadriceps and hamstring flexion and 5/5 on the left. Peripheral pulses are 1+ posterior tibial. No peripheral edema is noted bilaterally. Lower extremities are warm and dry to touch, equal in color and appearance. 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 Patient's right shoulder shows significant tenderness with palpation of the anterior bicipital groove as well as the posterior deltoid and over the acromioclavicular joint itself without significant radiation. Patient shows good abduction but significantly tender past 45 degrees closer to 90 degrees and with resistance is very tender in the shoulder itself. No radiation is demonstrated. Left side shows normal rotation without difficulty. SKIN: Shows warm and dry, good turgor. No edema. No sores, rashes or bruising throughout. Procedure: Procedure: Options were discussed with the patient. Patient's old chart was reviewed as her current medication regimen updated current review of systems updated today as well. We will proceed with a right intra-articular glenohumeral shoulder joint injection today with fluoroscopic guidance. Risk discussed including but not limited to bleeding infection possibility of intravascular injection sequelae spread local anesthetic numbness side effects steroid medication exposure fluoroscopy and poor results regarding pain control. Patient understands wished to proceed. Patient return to clinic in approximately 2 weeks for follow-up, was counseled as return appointment activity level and side effects to be aware of. Medication Injected: Med Injected: Patient supine position under sterile prep and drape using C-arm fluoroscopic guidance patient's right shoulder was visualized and using 25-gauge needle 1% lidocaine was used to topically anesthetized area over the glenohumeral joint on the right. Using a 22-gauge Quincke needle with stylette the joint was entered under direct fluoroscopic visualization without difficulty stylet was removed at this time 2 cc of contrast was injected with good intra-articular spread in the shoulder joint without uptake. At this time 3 cc of 0.25% bupivacaine and 80 mg Depo-Medrol was then injected into the joint. Needle was removed and sterile bandage was applied. Patient tolerated the procedure well and had no complications. Condition at Discharge: Condition at Discharge: Condition at discharge stable, patient already procedure well and had no complications. DAVID MCHUGH MD Jan 31, 2021 16:00
--- NOTE | 2021-01-31 16:01 | PDOC4 ---
Procedure Note: ICD 10 Code: ICD 10 Code: M 25.511 M1 9.011 Procedure Note: Patient was consented for right intra-articular shoulder joint injection with fluoroscopic guidance. Risks were discussed including but not limited to bleeding infection possibility of intravascular ejection sequelae spread local anesthetic numbness side effects steroid medication exposure fluoroscopy and poor results regarding pain control. Patient supine position under sterile prep and drape using C-arm fluoroscopic guidance patient's right shoulder was visualized and using 25-gauge needle 1% lidocaine was used to topically anesthetized area over the glenohumeral joint on the right. Using a 22-gauge Quincke needle with stylette the joint was entered under direct fluoroscopic visualization without difficulty stylet was removed at this time 2 cc of contrast was injected with good intra-articular spread in the shoulder joint without uptake. At this time 3 cc of 0.25% bupivacaine and 80 mg Depo-Medrol was then injected into the joint. Needle was removed and sterile bandage was applied. Patient tolerated the procedure well and had no complications. DAVID MCHUGH MD Jan 31, 2021 16:01
== END | disposition home or self-care (01) ==
LOC: PNCL 14:42
PROVIDERS: ATTEND Anesthesiology
DX: M19.011 Primary osteoarthritis, right shoulder (principal); M51.16 Intervertebral disc disorders with radiculopathy, lumbar region; I10 Essential (primary) hypertension; E78.00 Pure hypercholesterolemia, unspecified; F41.9 Anxiety disorder, unspecified; F32.9 Major depressive disorder, single episode, unspecified; Z90.49 Acquired absence of other specified parts of digestive tract; Z98.890 Other specified postprocedural states; Z79.899 Other long term (current) drug therapy; Z79.82 Long term (current) use of aspirin; Z88.1 Allergy status to other antibiotic agents; Z88.8 Allergy status to other drugs, medicaments and biological substances
CPT/HCPCS: 20610; 77002; J1030; J3490; Q9965; 20605

== ENCOUNTER → 2021-02-14 | Outpatient (CLI) | payer BC ==
[~2021-02-14] MED LIST changes: -BUPIVACAINE MPF 0.25% 10 ML VIAL. ONE; +methylPREDNISolone ACETATE 80 MG/ML VIAL. ONE
--- NOTE | 2021-02-14 14:03 | PDOC ---
Progress Note - Pain Clinic Date of Service: DOS: DATE: 02/14/21 TIME: 14:00 Diagnosis: Dx: Lumbar radiculopathy with lumbar degenerative disc disease Cervical radiculopathy with cervical degenerative disc disease Right shoulder joint pain with osteoarthritis History or Present Illness: HPI: 65-year-old female returns for follow-up status post right shoulder joint injection with very good results near 95% improvement patient reports her main complaint now is her back and lower extremities with pain rating the posterior gluteus posterior thighs posterior calves bilaterally and across the low back worse with walking standing changing positions better with sitting or laying down patient reports no new motor or sensory deficits no new bowel or bladder incontinence rates her pain as a 9 on scale 10 is worse over the past week 6 on average 5 its least it is a 6 today patient scribes aching sharp radiating constant initially doing much better with walking standing changing positions in her right shoulder is now doing much better with sleeping easier and doing repetitive motions lifting and daily activities much greater ease and comfort as well. Patient continues to take her hydrocodone without significant side effects. Physical Exam: VS: Blood pressure is 136/63 pulse 78 respirations 18 temperature 90.6 F height is 5 feet 3 inches weight is 186 pounds PE: PHYSICAL EXAMINATION: GENERAL: The patient is awake, alert, oriented, appropriate, very pleasant in demeanor HEENT: Shows normocephalic, atraumatic. Extraocular movements are intact and symmetrical. Oral cavity: Mucous membranes moist and pink. Dentition is intact. NECK: Shows anterior throat supple without palpable lymphadenopathy noted. Swallow reflex symmetrical. CHEST: Shows normal on inspection. Breath sounds are clear bilaterally, distant but no rales rhonchi or wheezes auscultated. HEART: Shows S1, S2 clear. No murmurs auscultated. ABDOMEN: Soft, nontender, nondistended, obese. No palpable organomegaly is noted. BACK: Shows spine grossly in the midline. Normal-appearing cervical lordotic curvature. There is increased thoracic kyphosis, some minor flattening of the lumbar lordotic curvature. Lumbar paraspinous muscles show symmetrical on inspection, on palpation shows some moderate tenderness diffusely throughout the upper, middle and lower distribution of the paraspinous muscles, but without specific trigger points, without radiation of pain. The patient has good rotational motion of the lumbar spine, both laterally as well as extension and flexion without significant difficulty. EXTREMITIES: Lower extremities show deep tendon reflexes 1+ in the patellar and tendo calcaneus tendons. Motor exam is 4 on a scale of 5 with right dorsiflexion, extension, quadriceps and hamstring flexion and 5/5 on the left. Peripheral pulses are 1+ posterior tibial. No peripheral edema is noted bilaterally. Lower extremities are warm and dry. SKIN: Shows warm and dry, good turgor. No edema. No sores, rashes or bruising throughout. Procedure: Procedure: Options were discussed with the patient. Patient's old chart reviews her current medication regimen updated current review of systems updated today as well. We will proceed with a lumbar epidural steroid injection today with fluoroscopic guidance. Risks were discussed including but not limited to: Bleeding, infection, possibility of epidural hematoma and subsequent neurological compromise, dural puncture, headaches, spinal cord and/or nerve damage, side effects of steroid medication, and poor results regarding pain control. Patient understands and wished to proceed. Patient will return to the clinic in approximate 2 weeks for follow-up, was counseled as to return appointment, activity level and side effects to be aware of.. Medication Injected: Med Injected: Procedure is lumbar epidural steroid injection under local anesthetic using sterile prep and drape at the L5-S1 level using C-arm fluoroscopic guidance in both AP and lateral views medications injected is 120 mg Depo-Medrol +10mL preservative-free normal saline and 2 mL contrast- condition at discharge is stable patient tolerated procedure well had no complications. Condition at Discharge: Condition at Discharge: Condition at discharge stable, pain tolerated the procedure well and had no complications. DAVID MCHUGH MD Feb 14, 2021 14:03
--- NOTE | 2021-02-14 14:04 | PDOC4 ---
Procedure Note: ICD 10 Code: ICD 10 Code: M54.16 M51.36 Procedure Note: Patient was consented for lumbar epidural steroid injection with fluoroscopic guidance. Risks were discussed including but not limited to: Bleeding, infection, possibility of epidural hematoma and subsequent neurological compromise, dural puncture, headaches, spinal cord and/or nerve damage, side effects of steroid medication, and poor results regarding pain control. Patient understands and wished to proceed. Procedure is lumbar epidural steroid injection under local anesthetic using sterile prep and drape at the L5-S1 level using C-arm fluoroscopic guidance in both AP and lateral views medications injected is 120 mg Depo-Medrol +10mL preservative-free normal saline and 2 mL contrast- condition at discharge is stable patient tolerated procedure well had no complications. DAVID MCHUGH MD Feb 14, 2021 14:04
== END ==
LOC: PNCL 13:40
PROVIDERS: ATTEND Anesthesiology
DX: M51.16 Intervertebral disc disorders with radiculopathy, lumbar region (principal); I10 Essential (primary) hypertension; E78.00 Pure hypercholesterolemia, unspecified; F41.9 Anxiety disorder, unspecified; F32.9 Major depressive disorder, single episode, unspecified; Z90.49 Acquired absence of other specified parts of digestive tract; Z98.890 Other specified postprocedural states
CPT/HCPCS: 62323; J1030; J1040; Q9965

== ENCOUNTER → 2021-04-11 | Outpatient (CLI) | payer BC ==
[~2021-04-11] MED LIST changes: +BUSP30TA PO; -DULO60CA6 PO; +DULO60CA7 PO; +HYDR-2759 PO; -methylPREDNISolone ACETATE 40 MG/ML VIAL. ONE
--- NOTE | 2021-04-11 11:27 | PDOC ---
Progress Note - Pain Clinic Date of Service: DOS: DATE: 04/11/21 TIME: 11:20 Diagnosis: Dx: Lumbar radiculopathy with lumbar degenerative disease Cervical radiculopathy with cervicalgia Right shoulder joint pain with osteoarthritis History or Present Illness: HPI: 66-year-old female returns for follow-up status post lumbar epidural steroid injection x1. Patient reports about 70% improvement for the first month after the injection with pain returning the low back and bilateral lower extremities posterior gluteus posterior thighs posterior calves with new finding of some weakness in the left lower extremity greater than the right where normal she not have any weakness in the legs she reports it is becoming somewhat unstable she feels like she is about to fall when she is her left leg repetitively likely stairs or steps and just with regular walking patient reports right leg still feels fairly strong the left leg is feeling somewhat unstable patient reports no overt motor loss but fatigability and instability in the left side patient reports her pain is a 10 on scale 10 is worse over the past week 7 on average 6 its least and is a 7 today patient was aching sharp tight in the low back radiating shooting the lower extremities. Patient reports no bowel or bladder incontinence. Patient also taking hydrocodone 5mg and is reporting no side effects with medications does decrease the pain by about 70 to 75% as well on its own. Physical Exam: VS: Blood pressure is 121/60 pulse 75 respirations are 16 temperature 98.5 F height is 5 foot 3 inches weight is 181 pounds PE: PHYSICAL EXAMINATION: GENERAL: The patient is awake, alert, oriented, appropriate, very pleasant in demeanor HEENT: Shows normocephalic, atraumatic. Extraocular movements are intact and symmetrical. Oral cavity: Mucous membranes moist and pink. Dentition is intact. NECK: Shows anterior throat supple without palpable lymphadenopathy noted. Swallow reflex symmetrical. CHEST: Shows normal on inspection. Breath sounds are clear bilaterally, distant no rales rhonchi or wheeze auscultated. HEART: Shows S1, S2 clear. No murmurs auscultated. ABDOMEN: Soft, nontender, nondistended, obese. No palpable organomegaly is noted. BACK: Shows spine grossly in the midline. Normal-appearing cervical lordotic curvature. There is increased thoracic kyphosis, some flattening of the lumbar lordotic curvature. Lumbar paraspinous muscles show symmetrical on inspection, on palpation shows some moderate tenderness diffusely throughout the upper, middle and lower distribution of the paraspinous muscles, but without specific trigger points, without radiation of pain. The patient has good rotational motion of the lumbar spine, both laterally as well as extension and flexion without significant difficulty. EXTREMITIES: Lower extremities show deep tendon reflexes 1 in the patellar and tendo calcaneus tendons. Motor exam is 4 on a scale of 5 with right dorsiflexion, extension, quadriceps and hamstring flexion and 5/5 on the left. Peripheral pulses are 1 posterior tibial. No peripheral edema is noted bilaterally. Lower extremities are warm and dry to touch, equal in color and appearance. SKIN: Shows warm and dry, good turgor. No edema. No sores, rashes or bruising throughout. Procedure: Procedure: Options were discussed with patient. Patient chart was reviewed as her current medication regimen updated current review of systems updated today as well. We will proceed with a lumbar epidural steroid action today with fluoroscopic guidance. Risks were discussed including but not limited to: Bleeding, infection, possibility of epidural hematoma and subsequent neurological compromise, dural puncture, headaches, spinal cord and/or nerve damage, side effects of steroid medication, and poor results regarding pain control. Patient understands and wished to proceed. Patient will return to the clinic in approximate 2 weeks for follow-up, was counseled as return appointment, activity level, and side effects to be aware of. Medication Injected: Med Injected: Procedure is lumbar epidural steroid injection under local anesthetic using sterile prep and drape at the L5-S1 level using C-arm fluoroscopic guidance in both AP and lateral views medications injected is 120 mg Depo-Medrol +10mL preservative-free normal saline and 2 mL contrast- condition at discharge is stable patient tolerated procedure well had no complications. Condition at Discharge: Condition at Discharge: Condition at discharge stable, patient tolerated procedure well and had no complications. DAVID MCHUGH MD Apr 11, 2021 11:27
--- NOTE | 2021-04-11 11:27 | PDOC4 ---
Procedure Note: ICD 10 Code: ICD 10 Code: M51.17 M51.87 Procedure Note: Patient was consented for lumbar epidural steroid injection with fluoroscopic guidance risks were discussed including but not limited to: Bleeding, infection, possibility of epidural hematoma and subsequent neurological compromise, dural puncture, headaches, spinal cord and/or nerve damage, side effects of steroid medication, and poor results regarding pain control. Patient understands and wished to proceed. Procedure is lumbar epidural steroid injection under local anesthetic using sterile prep and drape at the L5-S1 level using C-arm fluoroscopic guidance in both AP and lateral views medications injected is 120 mg Depo-Medrol +10mL preservative-free normal saline and 2 mL contrast- condition at discharge is stable patient tolerated procedure well had no complications. DAVID MCHUGH MD Apr 11, 2021 11:27
== END | disposition home or self-care (01) ==
LOC: PNCL 10:27
PROVIDERS: ATTEND Anesthesiology
DX: M51.16 Intervertebral disc disorders with radiculopathy, lumbar region (principal); M19.011 Primary osteoarthritis, right shoulder; M54.2 Cervicalgia; I10 Essential (primary) hypertension; E78.00 Pure hypercholesterolemia, unspecified; F41.9 Anxiety disorder, unspecified; F32.9 Major depressive disorder, single episode, unspecified; Z90.49 Acquired absence of other specified parts of digestive tract; Z98.890 Other specified postprocedural states; Z79.899 Other long term (current) drug therapy; Z79.82 Long term (current) use of aspirin; Z88.8 Allergy status to other drugs, medicaments and biological substances; Z88.1 Allergy status to other antibiotic agents; Z82.49 Family history of ischemic heart disease and other diseases of the circulatory system; Z72.89 Other problems related to lifestyle
CPT/HCPCS: 62323; J1040; Q9965

== ENCOUNTER → 2021-05-01 | Outpatient (CLI) | payer BC ==
[~2021-05-01] MED LIST changes: +BUPIVACAINE MPF 0.25% 10 ML VIAL. ONE
--- NOTE | 2021-05-01 08:49 | PDOC ---
Progress Note - Pain Clinic Date of Service: DOS: DATE: 05/01/21 TIME: 08:45 Diagnosis: Dx: Lumbar radiculopathy with lumbar degenerative disease Cervical radiculopathy Right shoulder joint pain with osteoarthritis History or Present Illness: HPI: 66-year-old female returns for follow-up status post lumbar epidural steroid action x2. Patient reports nearly 100% improvement over the past few months after last injection which was in March patient reports that is doing much better with her low back her chief complaint however is right shoulder pain worse with lifting repetitive motions reaching her arm up over her head difficulty with sleeping patient reports pain in the right shoulder 10 on scale 10 is worse over the past week 7 on average for its least is a 7 today. Patient scribes as aching unbearable severe can be constant at times with repetitive motions or with weightbearing and lifting with the right shoulder. Patient reports her back however is doing quite a bit better with the pain in her lower extremities occasionally there but mostly controlled at this point. Patient reports better with sitting or laying down better with resting her arm no deficits no bowel or bladder incontinence. Physical Exam: VS: Blood pressure is 140/78 pulse 88 respirations 18 temperature 90.6 3 Fahrenheit height is 5 foot 8 inches weight is 176 pounds PE: PHYSICAL EXAMINATION: GENERAL: The patient is awake, alert, oriented, appropriate, very pleasant in demeanor HEENT: Shows normocephalic, atraumatic. Extraocular movements are intact and symmetrical. Oral cavity: Mucous membranes moist and pink. NECK: Shows anterior throat supple without palpable lymphadenopathy noted. Swallow reflex symmetrical. CHEST: Shows normal on inspection. Breath sounds are clear bilaterally, distant but no rales or rhonchi. HEART: Shows S1, S2 clear. No murmurs auscultated. ABDOMEN: Soft, nontender, nondistended, obese. No palpable organomegaly is noted. BACK: Shows spine grossly in the midline. Normal-appearing cervical lordotic curvature. There is slightly increased thoracic kyphosis, some minor flattening of the lumbar lordotic curvature. Lumbar paraspinous muscles show symmetrical on inspection, on palpation shows some moderate tenderness diffusely throughout the upper, middle and lower distribution of the paraspinous muscles without specific trigger points, without radiation of pain. The patient has good rotational motion of the lumbar spine, both laterally as well as extension and flexion without significant difficulty. EXTREMITIES: Lower extremities show deep tendon reflexes 1+ in the patellar and tendo calcaneus tendons. Motor exam is 4 on a scale of 5 with right dorsiflexion, extension, quadriceps and hamstring flexion and 5/5 on the left. Peripheral pulses are 1 posterior tibial. No peripheral edema is noted bilaterally. Lower extremities are warm and dry. Upper extremity show deep tendon reflexes 2+ in the bicep triceps tendons, motor exam strong with small package and bundle sorter clerk strength rated 5 out of 5 as is bicep and tricep flexion. Right shoulder shows significant tenderness over the right acromioclavicular joint as well as with abduction greater than 45 degrees on the right side with significant pain also tenderness with palpation over the anterior deltoid as well as the superior aspect of the shoulder itself left side is nontender and shows full range of motion SKIN: Shows warm and dry, good turgor. No edema. No sores, rashes or bruising throughout. Procedure: Procedure: Options were discussed with the patient. Patient's old chart was reviewed as her current medication regimen updated current review of systems updated today as well. We will proceed with a right intra-articular shoulder joint injection today with fluoroscopic guidance. Risk were discussed including but not limited to bleeding infection possibly intravascular injection sequelae spread local anesthetic numbness side effects steroid medication is erosion fluoroscopy and poor results regarding pain control. Patient understands wished to proceed. Also discussed adding a muscle relaxant to patient's regimen for her back pain mainly, and will prescribe Flexeril 10 mg up to 3 times daily. Patient was given instructions well side effects beware with the medication. Patient will follow up in approximately 4 weeks as scheduled. Patient will need refill on her hydrocodone in approximately 10 days as well, and will call for electronic prescription at that time. Medication Injected: Med Injected: Patient supine position under sterile prep and drape using C-arm fluoroscopic guidance patient's right shoulder was visualized and using 25-gauge needle 1% lidocaine was used to topically anesthetized area over the glenohumeral joint on the right. Using a 22-gauge Quincke needle with stylette the joint was entered under direct fluoroscopic visualization without difficulty stylet was removed at this time 2 cc of contrast was injected with good intra-articular spread in the shoulder joint without uptake. At this time 3 cc of 0.25% bupivacaine and 80 mg Depo-Medrol was then injected into the joint. Needle was removed and sterile bandage was applied. Patient tolerated the procedure well and had no complications. Condition at Discharge: Condition at Discharge: Condition at discharge stable, paced tolerated procedure well had no complications. DAVID MCHUGH MD May 01, 2021 08:49
--- NOTE | 2021-05-01 08:50 | PDOC4 ---
Procedure Note: ICD 10 Code: ICD 10 Code: M2 5.511 M1 9.011 Procedure Note: Patient was consented for right intra-articular shoulder joint injection with fluoroscopic guidance. Risks were discussed including but not limited to bleeding infection possibly intravascular injection sequelae spread local anesthetic numbness side effects steroid medication exposure fluoroscopy and portals regarding pain control. Patient understands wished to proceed. Patient supine position under sterile prep and drape using C-arm fluoroscopic guidance patient's right shoulder was visualized and using 25-gauge needle 1% lidocaine was used to topically anesthetized area over the glenohumeral joint on the right. Using a 22-gauge Quincke needle with stylette the joint was entered under direct fluoroscopic visualization without difficulty stylet was removed at this time 2 cc of contrast was injected with good intra-articular spread in the shoulder joint without uptake. At this time 3 cc of 0.25% bupivacaine and 80 mg Depo-Medrol was then injected into the joint. Needle was removed and sterile bandage was applied. Patient tolerated the procedure well and had no complications. DAVID MCHUGH MD May 01, 2021 08:50
== END | disposition home or self-care (01) ==
LOC: PNCL 08:11
PROVIDERS: ATTEND Anesthesiology
DX: M19.011 Primary osteoarthritis, right shoulder (principal); M51.16 Intervertebral disc disorders with radiculopathy, lumbar region; I10 Essential (primary) hypertension; E78.00 Pure hypercholesterolemia, unspecified; F41.9 Anxiety disorder, unspecified; F32.9 Major depressive disorder, single episode, unspecified; Z79.82 Long term (current) use of aspirin; Z79.899 Other long term (current) drug therapy; Z90.49 Acquired absence of other specified parts of digestive tract; Z98.890 Other specified postprocedural states; Z72.89 Other problems related to lifestyle; Z88.1 Allergy status to other antibiotic agents; Z88.8 Allergy status to other drugs, medicaments and biological substances
CPT/HCPCS: 20610; 77002; J1040; J3490; Q9965

== ENCOUNTER → 2021-05-14 | Outpatient (CLI) | payer BC ==
[~2021-05-14] MED LIST changes: -BUPIVACAINE MPF 0.25% 10 ML VIAL. ONE; -IOHEXOL 180 MG/ML 10 ML VIAL. ONE; -methylPREDNISolone ACETATE 80 MG/ML VIAL. ONE
--- NOTE | 2021-05-14 08:56 | PDOC ---
Progress Note - Pain Clinic Date of Service: DOS: DATE: 05/14/21 TIME: 08:54 Diagnosis: Dx: Lumbar radiculopathy with lumbar degenerative disease Cervical radiculopathy Right shoulder joint pain with osteoarthritis History or Present Illness: HPI: Telemedicine visits for patient today with identity verified with date of and full name, total time spent 12 minutes 66-year-old female with chronic medication management as well as intra-articular joint injections for the right shoulder and lumbar epidural steroid injections with good results patient reported about 70 to 80% improvement with most of the procedures also taking hydrocodone 5/325 up to 3 times daily with good results and reported about 75% improvement with the medication alone and without any significant side effects. Patient has had appropriate K tracks reporting as well as appropriate urinalysis to date as well. We discussed that we will repeat fill patient's medication electronically prescribed again patient was given instructions well side effects beware with the medication and will follow up in approximate 4 weeks as scheduled. Physical Exam: PE: DAVID MCHUGH MD May 14, 2021 08:56
== END | disposition home or self-care (01) ==
LOC: PNCL 08:33
PROVIDERS: ATTEND Anesthesiology
DX: M51.16 Intervertebral disc disorders with radiculopathy, lumbar region (principal); M25.511 Pain in right shoulder; I10 Essential (primary) hypertension; M19.90 Unspecified osteoarthritis, unspecified site; E78.00 Pure hypercholesterolemia, unspecified; F32.9 Major depressive disorder, single episode, unspecified; F41.9 Anxiety disorder, unspecified; Z98.890 Other specified postprocedural states; Z79.899 Other long term (current) drug therapy; Z90.49 Acquired absence of other specified parts of digestive tract; Z79.01 Long term (current) use of anticoagulants
CPT/HCPCS: 99212; G0463

== ENCOUNTER → 2021-06-19 | Outpatient (CLI) | payer BC ==
--- NOTE | 2021-06-19 13:14 | NUR ---
Pt. called requesting Dr. Lieberman e-scribe her Hydrocodone 5/325mg rx. she states she is not having any new health issues or side effects from the medication. No problem with constipation. Will call for her next appt. Ktracs checked, no issues noted. Pts. general pain level is 5/10. Pharmacy verified. Sobeida Kolb RN
--- NOTE | 2021-06-19 13:16 | PDOC ---
Progress Note - Pain Clinic Date of Service: DOS: DATE: 06/19/21 TIME: 13:14 Diagnosis: Dx: Lumbar radiculopathy with lumbar degenerative disc disease Cervical radiculopathy Right shoulder joint pain with osteoarthritis History or Present Illness: HPI: Telemedicine visit today with patient's identity verified with complete date of as well as full name, total time spent 11 minutes. 66-year-old female via telemedicine visit today requesting refill of hydrocodone 5 mg patient reports he is doing very well with this and has been on a very stable regimen without any specific side effects patient reports her pain is reduced by about 75% with the medication and she watches her activity to make sure she is not overdo it and cause any increased pain but she still very active staying busy at home as well as some short distance traveling patient reports still some pain in the right shoulder joint but much better with the medication as well and she did have a right shoulder injection on her last visit in April which is quite helpful as well. Patient reports again no side effects with the medication she has had appropriate K tracks reporting as well as appropriate urinalyses to date. We will refill patient's hydrocodone 5 mg #90 to be taken up to 3 times daily for 1 month prescription. Patient will follow up in approximately 1 month as scheduled. Physical Exam: PE: DAVID MCHUGH MD Jun 19, 2021 13:16
== END | disposition home or self-care (01) ==
LOC: PNCL 13:11
PROVIDERS: ATTEND Anesthesiology
DX: M51.16 Intervertebral disc disorders with radiculopathy, lumbar region (principal); M19.011 Primary osteoarthritis, right shoulder; I10 Essential (primary) hypertension; E78.00 Pure hypercholesterolemia, unspecified; F41.9 Anxiety disorder, unspecified; F32.9 Major depressive disorder, single episode, unspecified; Z79.82 Long term (current) use of aspirin; Z79.899 Other long term (current) drug therapy; Z90.49 Acquired absence of other specified parts of digestive tract; Z98.890 Other specified postprocedural states; Z72.89 Other problems related to lifestyle; Z88.8 Allergy status to other drugs, medicaments and biological substances
CPT/HCPCS: 99212; G0463

== ENCOUNTER → 2021-06-29 | Outpatient (CLI) | payer BC ==
[~2021-06-29] MED LIST changes: +IOHEXOL 180 MG/ML 10 ML VIAL. ONE; +methylPREDNISolone ACETATE 40 MG/ML VIAL. ONE; +methylPREDNISolone ACETATE 80 MG/ML VIAL. ONE
--- NOTE | 2021-06-29 10:52 | PDOC ---
Progress Note - Pain Clinic Date of Service: DOS: DATE: 06/29/21 TIME: 10:48 Diagnosis: Dx: Lumbar radiculopathy with lumbar degenerative disc disease Cervical radiculopathy Right shoulder joint pain with osteoarthritis History or Present Illness: HPI: 66-year-old female returns for follow-up status post right shoulder joint and ejection glenohumeral joint with very good improvement about 80% improved for about 2 months following the injection patient reports is starting to become more painful in the right shoulder with repetitive motion and weightbearing weight lifting reaching over her head with the right hand and waking her from sleep at night when she sleeps on the right side patient reports otherwise she sleeps well her chief complaint today however is low back and bilateral lower extremity pain with pain radiating to the low back and the posterior gluteus posterior thighs posterior calves into the ankles bilaterally rated as a 9 on scale 10 is worst 7 on average 5 its least is a 7 today patient scribes aching dull shooting pain in the lower extremities radiating on and off intensity worse with walking standing better with sitting or laying down. Patient reports no bowel or bladder incontinence no loss of motor function but significant fatigability with ambulation. Physical Exam: VS: Blood pressure is 133/76 pulse 78 respirations 18 temperature 98.2 F weight is 180 pounds PE: PHYSICAL EXAMINATION: GENERAL: The patient is awake, alert, oriented, appropriate, very pleasant in demeanor HEENT: Shows normocephalic, atraumatic. Extraocular movements are intact and symmetrical. Oral cavity: Mucous membranes moist and pink. Dentition is intact. NECK: Shows anterior throat supple without palpable lymphadenopathy noted. Swallow reflex symmetrical. CHEST: Shows normal on inspection. Breath sounds are clear bilaterally, distant but no rales or rhonchi. HEART: Shows S1, S2 clear. No murmurs auscultated. ABDOMEN: Soft, nontender, nondistended. No palpable organomegaly is noted. BACK: Shows spine grossly in the midline. Normal-appearing cervical lordotic curvature. There is slightly increased thoracic kyphosis, some minor flattening of the lumbar lordotic curvature. Lumbar paraspinous muscles show symmetrical on inspection, on palpation shows some moderate tenderness diffusely throughout the upper, middle and lower distribution of the paraspinous muscles without specific trigger points, without radiation of pain. The patient has good rotational motion of the lumbar spine, both laterally as well as extension and flexion without significant difficulty. No tenderness over the spinous processes, sacrum or sacroiliac regions. EXTREMITIES: Lower extremities show deep tendon reflexes 1+ in the patellar and tendo calcaneus tendons. Motor exam is 4 on a scale of 5 with right dorsiflexion, extension, quadriceps and hamstring flexion and 5/5 on the left. Peripheral pulses are 1+ posterior tibial. No peripheral edema is noted bilaterally. Lower extremities are warm and dry to touch, equal in color and appearance. Upper extremity show deep tendon reflexes 2+ in the bicep tricep tendons, motor exam strong with public works inspector strength rated 5 out of 5 bilaterally right shoulder shows moderate tenderness with palpation of the anterior aspect of the glenohumeral joint but without specific radiation. Patient shows good rotation of motion but moderate tenderness with abduction at 90 degrees with resistance on the right only. SKIN: Shows warm and dry, good turgor. No edema. No sores, rashes or bruising throughout. Procedure: Procedure: Options were discussed with patient. Patient chart was reviewed as her current medication regimen updated current review of systems updated today as well. We will proceed with a lumbar epidural steroid injection today with fluoroscopic guidance risks were discussed including but not limited to: Bleeding, infection, possibility of epidural hematoma and subsequent neurological compromise, dural puncture, headaches, spinal cord and/or nerve damage, side effects of steroid medication, and poor results regarding pain control. Patient understands and wished to proceed. Patient will return to clinic in approximately 2 weeks for follow-up, was counseled as return appointment, activity level, and side effect to be aware of. Medication Injected: Med Injected: Procedure is lumbar epidural steroid injection under local anesthetic using sterile prep and drape at the L5-S1 level using C-arm fluoroscopic guidance in both AP and lateral views medications injected is 120 mg Depo-Medrol +10mL preservative-free normal saline and 2 mL contrast- condition at discharge is stable patient tolerated procedure well had no complications. Condition at Discharge: Condition at Discharge: Condition at discharge stable, paced tolerated the procedure well and had no complications. DAVID MCHUGH MD Jun 29, 2021 10:52
--- NOTE | 2021-06-29 10:52 | PDOC4 ---
Procedure Note: ICD 10 Code: ICD 10 Code: M54.17 M51.87 Procedure Note: Patient was consented for lumbar epidural steroid injection with fluoroscopic guidance. Risks were discussed including but not limited to: Bleeding, infection, possibility of epidural hematoma and subsequent neurological compromise, dural puncture, headaches, spinal cord and/or nerve damage, side effects of steroid medication, and poor results regarding pain control. Patient understands and wished to proceed. Procedure is lumbar epidural steroid injection under local anesthetic using sterile prep and drape at the L5-S1 level using C-arm fluoroscopic guidance in both AP and lateral views medications injected is 120 mg Depo-Medrol +10mL preservative-free normal saline and 2 mL contrast- condition at discharge is stable patient tolerated procedure well had no complications. DAVID MCHUGH MD Jun 29, 2021 10:52
== END | disposition home or self-care (01) ==
LOC: PNCL 10:14
PROVIDERS: ATTEND Anesthesiology
DX: M51.16 Intervertebral disc disorders with radiculopathy, lumbar region (principal); M19.011 Primary osteoarthritis, right shoulder; I10 Essential (primary) hypertension; E78.00 Pure hypercholesterolemia, unspecified; F41.9 Anxiety disorder, unspecified; F32.9 Major depressive disorder, single episode, unspecified; Z90.49 Acquired absence of other specified parts of digestive tract; Z98.890 Other specified postprocedural states; Z79.899 Other long term (current) drug therapy; Z79.82 Long term (current) use of aspirin; Z72.89 Other problems related to lifestyle; Z82.49 Family history of ischemic heart disease and other diseases of the circulatory system; Z88.1 Allergy status to other antibiotic agents; Z88.8 Allergy status to other drugs, medicaments and biological substances
CPT/HCPCS: 62323; J1030; J1040; Q9965

== ENCOUNTER → 2021-07-05 | Outpatient (CLI) | payer BC ==
[~2021-07-05] MED LIST changes: +BUPIVACAINE MPF 0.25% 10 ML VIAL. ONE; -methylPREDNISolone ACETATE 40 MG/ML VIAL. ONE
--- NOTE | 2021-07-05 11:38 | PDOC ---
Progress Note - Pain Clinic Date of Service: DOS: DATE: 07/05/21 TIME: 11:33 Diagnosis: Dx: Lumbar radiculopathy with lumbar degenerative disc disease Cervical radiculopathy Right shoulder joint pain with osteoarthritis History or Present Illness: HPI: 66-year-old female returns status post lumbar epidural steroid injection with very good results about 90% improvement patient's chief complaint today however is right shoulder joint pain getting much worse with weightbearing repetitive motions reaching over her head with her right arm reaching forward and weightbearing with reaching forward as well as driving and writing with her right arm or using a computer or cell phone. Patient reports is getting worse especially with abduction of the right arm to the side patient prescribed is aching and sharp can be constant with activity greater than 9 on scale 10 is worse over the past week 7 on average 5 its least is a 7 today. Patient reports no loss of motor function but significant fatigability in the right arm and pain radiating to the biceps from the shoulder anteriorly. Patient reports is better with rest moving her arm up on pillow generally does not awaken her from sleep at night unless she sleeps on the left shoulder. Patient reports no bowel or bladder incontinence. Physical Exam: VS: Blood pressure is 134/78 pulse 71 respirations 18 temperature is 90.9 urinary he ight is 5 feet 3 inches weight is 180 pounds PE: PHYSICAL EXAMINATION: GENERAL: The patient is awake, alert, oriented, appropriate, very pleasant in demeanor HEENT: Shows normocephalic, atraumatic. Extraocular movements are intact and symmetrical. Oral cavity: Mucous membranes moist and pink. Dentition is intact. NECK: Shows anterior throat supple without palpable lymphadenopathy noted. Swallow reflex symmetrical. CHEST: Shows normal on inspection. Breath sounds are clear bilaterally, distant no rales or rhonchi. HEART: Shows S1, S2 clear. No murmurs auscultated. ABDOMEN: Soft, nontender, nondistended. No palpable organomegaly is noted. BACK: Shows spine grossly in the midline. Normal-appearing cervical lordotic curvature. Neck shows full rotation motion cervical spine, on palpation some mild tenderness in the inferior aspect the cervical paraspinous muscles more on the right than the left without radiation without trigger points. There is increased thoracic kyphosis, some flattening of the lumbar lordotic curvature. Lumbar paraspinous muscles show symmetrical on inspection, on palpation shows some moderate tenderness diffusely throughout the upper, middle and lower distribution of the paraspinous muscles, but without specific trigger points, without radiation of pain. The patient has good rotational motion of the lumbar spine, both laterally as well as extension and flexion without significant difficulty. No tenderness over the spinous processes, sacrum or sacroiliac regions. EXTREMITIES: Lower extremities show deep tendon reflexes 1+ in the patellar and tendo calcaneus tendons. Motor exam is 4 on a scale of 5 with right dorsiflexion, extension, quadriceps and hamstring flexion and 5/5 on the left. Peripheral pulses are 1+ posterior tibial. No peripheral edema is noted bilaterally. Lower extremities are warm and dry to touch, equal in color and a ppearance. Upper extremity show deep tendon reflexes 2+ in the bicep triceps tendons, motor exam strong with creative art therapist strength rated 5 out of 5 as is bicep and tricep flexion. Patient's right shoulder shows significant tenderness with palpation over the anterior aspect as well as the posterior aspect of the shoulder with range of motion shows significant tenderness with abduction and resistance on the right side at about 45 degrees left side is nontender. Patient shoulder shrug strong and intact without loss of strength on resistance bilaterally. SKIN: Shows warm and dry, good turgor. No edema. No sores, rashes or bruising throughout. Procedure: Procedure: Options were discussed with the patient. Patient chart was reviewed as her current medication regimen updated current review of systems updated today as well. We will proceed with a right intra-articular glenohumeral shoulder joint today with fluoroscopic guidance. Risk were discussed including but not limited to bleeding infection possibility of intravascular injection sequelae spread local anesthetic and numbness side effects steroid medication exposure fluoroscopy and poor results regarding pain control. Patient understands wished to proceed. Patient will return to clinic in approximately 4 weeks for follow- up, was counseled as to return appointment, activity level, and side effect to be aware of. Medication Injected: Med Injected: Patient supine position under sterile prep and drape using C-arm fluoroscopic guidance patient's right shoulder was visualized and using 25-gauge needle 1% lidocaine was used to topically anesthetized area over the glenohumeral joint on the right. Using a 22-gauge Quincke needle with stylette the joint was entered under direct fluoroscopic visualization without difficulty stylet was removed at this time 1.5 cc of contrast was injected with good intra-articular spread in the shoulder joint without uptake. At this time 3 cc of 0.25% bupivacaine and 80 mg Depo-Medrol was then injected into the joint. Needle was removed and sterile bandage was applied. Patient tolerated the procedure well and had no complications. Condition at Discharge: Condition at Discharge: Condition at discharge stable, patient Lluvia procedure well and had no complications. DAVID MCHUGH MD Jul 05, 2021 11:38
--- NOTE | 2021-07-05 11:38 | PDOC4 ---
Procedure Note: ICD 10 Code: ICD 10 Code: M2 5.511 M1 9.011 Procedure Note: The for right intra-articular shoulder joint injection with fluoroscopic guidance. Risks are discussed including but not limited to bleeding infection possibility of intravascular injection sequelae spread of local anesthetic numbness side effects steroid medication exposure fluoroscopy and poor results regarding pain control. Patient understands wished to proceed. Patient supine position under sterile prep and drape using C-arm fluoroscopic guidance patient's right shoulder was visualized and using 25-gauge needle 1% lidocaine was used to topically anesthetized area over the glenohumeral joint on the right. Using a 22-gauge Quincke needle with stylette the joint was entered under direct fluoroscopic visualization without difficulty stylet was removed at this time 1.5 cc of contrast was injected with good intra-articular spread in the shoulder joint without uptake. At this time 3 cc of 0.25% bupivacaine and 80 mg Depo-Medrol was then injected into the joint. Needle was removed and sterile bandage was applied. Patient tolerated the procedure well and had no complications. DAVID MCHUGH MD Jul 05, 2021 11:38
== END | disposition home or self-care (01) ==
LOC: PNCL 10:34
PROVIDERS: ATTEND Anesthesiology
DX: M19.011 Primary osteoarthritis, right shoulder (principal); M51.16 Intervertebral disc disorders with radiculopathy, lumbar region; I10 Essential (primary) hypertension; E78.00 Pure hypercholesterolemia, unspecified; F41.9 Anxiety disorder, unspecified; F32.9 Major depressive disorder, single episode, unspecified; Z79.82 Long term (current) use of aspirin; Z79.899 Other long term (current) drug therapy; Z98.890 Other specified postprocedural states; Z72.89 Other problems related to lifestyle; Z88.1 Allergy status to other antibiotic agents; Z88.8 Allergy status to other drugs, medicaments and biological substances
CPT/HCPCS: 20610; 77002; J1040; J3490; Q9965

== ENCOUNTER → 2021-07-27 | Outpatient (CLI) | payer BC ==
[~2021-07-27] MED LIST changes: -BUPIVACAINE MPF 0.25% 10 ML VIAL. ONE; -IOHEXOL 180 MG/ML 10 ML VIAL. ONE; -methylPREDNISolone ACETATE 80 MG/ML VIAL. ONE
--- NOTE | 2021-07-27 10:01 | PDOC ---
Progress Note - Pain Clinic Date of Service: DOS: DATE: 07/27/21 TIME: 09:59 Diagnosis: Dx: Lumbar radiculopathy with lumbar degenerative disc disease Cervical radiculopathy with cervical degenerative disc disease Right shoulder joint pain with osteoarthritis History or Present Illness: HPI: Telemedicine visit today with identity verified with full date of as well as full name, total time spent 12 minutes 66-year-old female via telemedicine visit requesting refill of hydrocodone patient to status post right shoulder joint injection July 05, 2021 patient reports doing very well after the injection but still significant pain returning in the right shoulder but only moderately patient reports is doing much better since her injection of her chronic pain in the neck and low back still significant but well controlled with the hydrocodone. Patient reports no side effects with medications patient has had appropriate K tracks report as well as appropriate urinalyses as well to date. We discussed the THC in her last urinalysis and it is decreasing from that prior, and discussed that this needs to continue on a downward trend. Patient understands. Patient is given instruction as well as side effects beware with the medication. We will refill patient's medication for 30-day. Patient will follow-up in approximate 30 days as scheduled. DAVID MCHUGH MD Jul 27, 2021 10:01
== END | disposition home or self-care (01) ==
LOC: PNCL 08:32
PROVIDERS: ATTEND Anesthesiology
DX: M51.16 Intervertebral disc disorders with radiculopathy, lumbar region (principal); M50.10 Cervical disc disorder with radiculopathy, unspecified cervical region; M19.011 Primary osteoarthritis, right shoulder; I10 Essential (primary) hypertension; E78.00 Pure hypercholesterolemia, unspecified; F41.9 Anxiety disorder, unspecified; F32.9 Major depressive disorder, single episode, unspecified; Z79.82 Long term (current) use of aspirin; Z79.899 Other long term (current) drug therapy; Z72.89 Other problems related to lifestyle; Z88.1 Allergy status to other antibiotic agents; Z88.8 Allergy status to other drugs, medicaments and biological substances
CPT/HCPCS: 99212; G0463

== ENCOUNTER → 2021-09-03 | Outpatient (CLI) | payer BC ==
[~2021-09-03] MED LIST changes: +BUPIVACAINE MPF 0.25% 30 ML VIAL. ONE; +DEXAMETHASONE PRES.FREE 10 MG/ML VIAL. ONE; +IOHEXOL 180 MG/ML 10 ML VIAL. ONE
--- NOTE | 2021-09-03 15:54 | PDOC ---
Progress Note - Pain Clinic Date of Service: DOS: DATE: 09/03/21 TIME: 15:48 Diagnosis: Dx: Right shoulder joint pain with osteoarthritis Lumbar radiculopathy with lumbar degenerative disease Cervical radiculopathy with cervical degenerative disc disease History or Present Illness: HPI: 66-year-old female returns for follow-up status post previous lumbar epidural steroid injection as well as medication management with hydrocodone. Patient reports has been doing very well with this without significant side effects her chief complaint today is right shoulder joint pain she has had this pain in the past as well with repetitive motion and use did very well after last treatment but now is having significant pain in the right shoulder as well as the base of the neck with some radiating pain to the anterior bicep and lateral deltoid on the right side worse with repetitive motions reaching over her head with her right hand reaching forward weightbearing and driving patient reports is a 10 on scale 10 is worse over the past week 9 on average 7 its least is a 7 today patient describes aching can be shooting in the arm and the base of the neck can be constant with repetitive motions and weightbearing. Patient reports generally does not awaken her from sleep at night is better with propping her arm up on the chair couch where it is supported without having to actively support it. Patient reports no deficits in the hand or arm she is not been dropping items or have any significant weakness in the arm but the shoulder feels fatigued and tired. Physical Exam: VS: Blood pressure is 107/65 pulse 83 respirations 18 temperature is 98.2 F height is 5 feet 3 inches weight is 178 pounds. PE: PHYSICAL EXAMINATION: GENERAL: The patient is awake, alert, oriented, appropriate, very pleasant in demeanor HEENT: Shows normocephalic, atraumatic. Extraocular movements are intact and symmetrical. Oral cavity: Mucous membranes moist and pink. Dentition is intact. NECK: Shows anterior throat supple without palpable lymphadenopathy noted. Swallow reflex symmetrical. CHEST: Shows normal on inspection. Breath sounds are clear bilaterally, distant but no rales or rhonchi. HEART: Shows S1, S2 clear. No murmurs auscultated. ABDOMEN: Soft, nontender, nondistended. No palpable organomegaly is noted. BACK: Shows spine grossly in the midline. Normal-appearing cervical lordotic cu rvature. Cervical spine shows paraspinous muscular symmetrical on inspection, with palpation some moderate tenderness inferiorly in the superior medial trapezius and more on the right than the left but without trigger points or radiation. Patient shows good rotation of motion cervical spine both laterally as well as full extension full forward flexion without significant report of increased pain. There is moderately increased thoracic kyphosis, some flattening of the lumbar lordotic curvature. Lumbar paraspinous muscles show symmetrical on inspection, on palpation shows some moderate tenderness diffusely throughout the upper, middle and lower distribution of the paraspinous muscles without specific trigger points, without radiation of pain. The patient has good rotational motion of the lumbar spine, both laterally as well as extension and flexion without significant difficulty. No tenderness over the spinous processes, sacrum or sacroiliac regions. EXTREMITIES: Lower extremities show deep tendon reflexes 1+ in the patellar and tendo calcaneus tendons. Motor exam is 4 on a scale of 5 with right dorsiflexion, extension, quadriceps and hamstring flexion and 4/5 on the left. Peripheral pulses are 1+ posterior tibial. No peripheral edema is noted bilaterally. Lower extremities are warm and dry to touch, equal in color and appearance. Upper extremity show deep tendon reflexes 2+ in the bicep tricep tendons, motor exam strong with sheet combining operator strength rated 5 out of 5 as is bicep and tricep flexion. Patient's right shoulder shows significant tenderness with palpation over the acromioclavicular joint as well as the anterior aspect of the bicipital groove some moderate tenderness posteriorly as well without radiation patient shows moderate tenderness to significant tenderness with abduction past 45 degrees and significant tenderness past 90 degrees left side shows full rotation motion without significant difficulty. SKIN: Shows warm and dry, good turgor. No edema. No sores, rashes or bruising throughout. Procedure: Procedure: Options were discussed with the patient. Patient chart reviews her current medication regimen updated current view systems updated today as well. We will proceed with a right intra-articular glenohumeral shoulder joint injection today with fluoroscopic guidance. Risks were discussed including not limited to bleeding infection possibility of intravascular injection sequelae spread of local anesthetic numbness side effects steroid medications posterior to fluoro scopy, and poor results regarding pain control. Patient understands wished to proceed. Patient will return to the clinic in approximately 2 weeks for follow- up, was counseled as to return appointment, activity level, and side effect to be aware of. Medication Injected: Med Injected: Patient supine position under sterile prep and drape using C-arm fluoroscopic guidance patient's right shoulder was visualized and using 25-gauge needle 1% lidocaine was used to topically anesthetized area over the glenohumeral joint on the right. Using a 22-gauge Quincke needle with stylette the joint was entered under direct fluoroscopic visualization without difficulty stylet was removed at this time 2 cc of contrast was injected with good intra-articular spread in the shoulder joint without uptake. At this time 3 cc of 0.25% bupivacaine and 10 mg dexamethasone was then injected into the joint. Needle was removed and sterile bandage was applied. Patient tolerated the procedure well and had no complications. Condition at Discharge: Condition at Discharge: Condition at discharge stable, patient tolerated the procedure well and had no complications. DAVID MCHUGH MD Sep 03, 2021 15:54
--- NOTE | 2021-09-03 15:54 | PDOC4 ---
Procedure Note: ICD 10 Code: ICD 10 Code: M2 5.511 M1 9.011 Procedure Note: Patient was consented for right intra-articular glenohumeral shoulder joint injection with fluoroscopic guidance. Risks are discussed including but not limited to bleeding infection possibility of intravascular injection and sequelae spread of local anesthetic and numbness side effects of steroid medication exposure to fluoroscopy and poor results regarding pain control. Patient understands wishes to proceed. Patient supine position under sterile prep and drape using C-arm fluoroscopic guidance patient's right shoulder was visualized and using 25-gauge needle 1% lidocaine was used to topically anesthetized area over the glenohumeral joint on the right. Using a 22-gauge Quincke needle with stylette the joint was entered under direct fluoroscopic visualization without difficulty stylet was removed at this time 2 cc of contrast was injected with good intra-articular spread in the shoulder joint without uptake. At this time 3 cc of 0.25% bupivacaine and 10 mg dexamethasone was then injected into the joint. Needle was removed and sterile bandage was applied. Patient tolerated the procedure well and had no complications. DAVID MCHUGH MD Sep 03, 2021 15:54
== END | disposition home or self-care (01) ==
LOC: PNCL 14:48
PROVIDERS: ATTEND Anesthesiology
DX: M19.011 Primary osteoarthritis, right shoulder (principal); M51.16 Intervertebral disc disorders with radiculopathy, lumbar region; M50.10 Cervical disc disorder with radiculopathy, unspecified cervical region; I10 Essential (primary) hypertension; E78.00 Pure hypercholesterolemia, unspecified; F41.9 Anxiety disorder, unspecified; F32.9 Major depressive disorder, single episode, unspecified; Z90.49 Acquired absence of other specified parts of digestive tract; Z98.890 Other specified postprocedural states; Z72.89 Other problems related to lifestyle; Z88.1 Allergy status to other antibiotic agents; Z88.8 Allergy status to other drugs, medicaments and biological substances; Z79.82 Long term (current) use of aspirin; Z79.899 Other long term (current) drug therapy
CPT/HCPCS: 20610; 77002; J1100; J3490; Q9965

== ENCOUNTER → 2021-10-08 | Outpatient (CLI) | payer BC ==
[~2021-10-08] MED LIST changes: -BUPIVACAINE MPF 0.25% 30 ML VIAL. ONE; -DEXAMETHASONE PRES.FREE 10 MG/ML VIAL. ONE; -IOHEXOL 180 MG/ML 10 ML VIAL. ONE
--- NOTE | 2021-10-08 12:30 | PDOC ---
Progress Note - Pain Clinic Date of Service: DOS: DATE: 10/08/21 TIME: 12:28 Diagnosis: Dx: Lumbar radiculopathy with lumbar degenerative disc disease Cervical radiculopathy Right shoulder joint pain with osteoarthritis History or Present Illness: HPI: Telemedicine visit today with patient's identity verified with full name as well as full date of , total time spent 12 minutes, telephone voice only 66-year-old female via telemedicine visit today requesting refill of hydrocodone 5 mg. Patient reports that she is doing very well with the current regimen up to 3 times daily with the medication without side effects patient reports no constipation still some significant pain in the right shoulder she is still seeing her orthopedist regarding this but is deciding not to have surgery at this time. Patient has low back pain she had previously without significant change but with significant provement up to about 70% with the medication when she is going to be active. Patient reports no bowel or bladder incontinence no constipation with the medications as well. Patient has had appropriate K tracks report as well as appropriate urinalyses to date. Options discussed with patient, we will refill patient's medication hydrocodone 5 mg with instructions side effects aware discussed. Patient will be given a 30-day prescription and will follow up in approximate 30 days as scheduled. Physical Exam: PE: DAVID MCHUGH MD Oct 08, 2021 12:30
--- NOTE | 2021-10-08 15:16 | NUR ---
Pt called clinic requesting a refill on her hydrocodone from Dr. Lieberman for her chronic pain issues. Pt. denies any new health problems, new side effects, or new allergies. Pharmacy verified. [facility] Tra[facility] checked. Pt. states pain level is averaging 3/10 with the medication. Will call soon to make an appt for DIM[facility]. Dr. Lieberman to contact pt. prior to E-scribing. Sobeida Kolb RN
== END | disposition home or self-care (01) ==
LOC: PNCL 11:27
PROVIDERS: ATTEND Anesthesiology
DX: M51.16 Intervertebral disc disorders with radiculopathy, lumbar region (principal); M19.011 Primary osteoarthritis, right shoulder; I10 Essential (primary) hypertension; E78.00 Pure hypercholesterolemia, unspecified; F41.9 Anxiety disorder, unspecified; F32.9 Major depressive disorder, single episode, unspecified; Z79.82 Long term (current) use of aspirin; Z88.1 Allergy status to other antibiotic agents; Z98.890 Other specified postprocedural states; Z79.899 Other long term (current) drug therapy; Z90.49 Acquired absence of other specified parts of digestive tract; Z82.49 Family history of ischemic heart disease and other diseases of the circulatory system
CPT/HCPCS: 99212; G0463

== ENCOUNTER → 2021-10-31 | Outpatient (CLI) | payer BC ==
[~2021-10-31] MED LIST changes: +CYCL10TA19 PO; +DEXAMETHASONE PRES.FREE 10 MG/ML VIAL. ONE; +IOHEXOL 180 MG/ML 10 ML VIAL. ONE; -VENL150C PO; +VENL150C3 PO
--- NOTE | 2021-10-31 11:19 | PDOC4 ---
Procedure Note: ICD 10 Code: ICD 10 Code: M54.17 M51.87 Procedure Note: Patient was consented for lumbar epidural steroid injection with fluoroscopic guidance. Risks were discussed including but not limited to: Bleeding, infection, possibility of epidural hematoma and subsequent neurological compromise, dural puncture, headaches, spinal cord and/or nerve damage, side effects of steroid medication, and poor results regarding pain control. Patient understands and wished to proceed. Procedure is lumbar epidural steroid injection under local anesthetic using sterile prep and drape at the L5-S1 level using C-arm fluoroscopic guidance in both AP and lateral views medications injected is 120 mg methylprednisolone +10mL preservative-free normal saline and 2 mL contrast- condition at discharge is stable patient tolerated procedure well had no complications. DAVID MCHUGH MD Oct 31, 2021 11:19
--- NOTE | 2021-10-31 11:19 | PDOC ---
Progress Note - Pain Clinic Date of Service: DOS: DATE: 10/31/21 TIME: 11:12 Diagnosis: Dx: Lumbar radiculopathy with lumbar degenerative disease Cervical radiculopathy Right shoulder joint pain with osteoarthritis History or Present Illness: HPI: 66-year-old female returns for follow-up status post right shoulder joint injection in September 03, 2021 patient did very well with about a 75% improvem ent in the right shoulder pain patient reports is returning slightly but her chief complaint today is low back and bilateral lower extremity pain patient reports pain across the low back and the bilateral lower extremities rating the posterior gluteus posterior thighs posterior calves bilaterally worse with walking standing change positions patient reports is aching and sharp in the back shooting in the legs cramping and stabbing and can be severe at times with weightbearing patient reports is better with sitting or laying down generally is worse with getting up from a seated position and standing for prolonged periods or walking greater than 10 to 15 minutes she must sit and rest. Patient reports is better with laying down does not awaken her from sleep patient rates pain as a 10 on scale 10 is worse over the past week 7 on average 6 its least and is a 7 today. Patient reports no loss of motor function but significant fatigability of both lower extremities and no bowel or bladder incontinence. Physical Exam: VS: Blood pressure is 149/69 pulse 74 respirations 18 temperature 98.8 F height is 5 feet 3 and half inches weight is 171 pounds. PE: PHYSICAL EXAMINATION: GENERAL: The patient is awake, alert, oriented, appropriate, very pleasant in demeanor. HEENT: Shows normocephalic, atraumatic. Extraocular movements are intact and s ymmetrical. Patient wearing eyeglasses. Oral cavity: Mucous membranes moist and pink. Dentition is intact. NECK: Shows anterior throat supple without palpable lymphadenopathy noted. Swallow reflex symmetrical. CHEST: Shows normal on inspection. Breath sounds are clear bilaterally, no rales or rhonchi. HEART: Shows S1, S2 clear. No murmurs auscultated. ABDOMEN: Soft, nontender, nondistended. No palpable organomegaly is noted. BACK: Shows spine grossly in the midline. Normal-appearing cervical lordotic curvature. There is slightly increased thoracic kyphosis, some flattening of the lumbar lordotic curvature. Lumbar paraspinous muscles show symmetrical on inspection, on palpation shows some moderate tenderness diffusely throughout the upper, middle and lower distribution of the paraspinous muscles without specific trigger points, without radiation of pain. The patient has good rotational motion of the lumbar spine, both laterally as well as extension and flexion without significant difficulty. EXTREMITIES: Lower extremities show deep tendon reflexes 1+ in the patellar and tendo calcaneus tendons. Motor exam is 4 on a scale of 5 with right dorsiflexion, extension, quadriceps and hamstring flexion and 4/5 on the left. Peripheral pulses are 1 posterior tibial. No peripheral edema is noted bilaterally. Lower extremities are warm and dry. SKIN: Shows warm and dry, good turgor. No edema. No sores, rashes or bruising throughout. Procedure: Procedure: Options were discussed with the patient. Patient's old chart was reviewed as her current medication regimen updated current review of systems updated today as well. We will proceed with a lumbar epidural steroid injection today with fluoroscopic guidance risks were discussed including but not limited to: Bleeding, infection, possibility of epidural hematoma and subsequent neurological compromise, dural puncture, headaches, spinal cord and/or nerve damage, side effects of steroid medication, and poor results regarding pain c ontrol. Patient understands and wished to proceed. Patient will return to the clinic in approximately 2 weeks for follow-up, was counseled as to return appointment, activity level, and side effect to be aware of. Medication Injected: Med Injected: Procedure is lumbar epidural steroid injection under local anesthetic using sterile prep and drape at the L5-S1 level using C-arm fluoroscopic guidance in both AP and lateral views medications injected is 120 mg methylprednisolone +10mL preservative-free normal saline and 2 mL contrast- condition at discharge is stable patient tolerated procedure well had no complications. Condition at Discharge: Condition at Discharge: Condition at discharge stable, patient Lluvia the procedure well and had no complications. DAVID MCHUGH MD Oct 31, 2021 11:19
== END | disposition home or self-care (01) ==
LOC: PNCL 10:37
PROVIDERS: ATTEND Anesthesiology
DX: M51.16 Intervertebral disc disorders with radiculopathy, lumbar region (principal); M54.12 Radiculopathy, cervical region; M19.011 Primary osteoarthritis, right shoulder; I10 Essential (primary) hypertension; E78.00 Pure hypercholesterolemia, unspecified; F41.9 Anxiety disorder, unspecified; F32.9 Major depressive disorder, single episode, unspecified; Z90.49 Acquired absence of other specified parts of digestive tract; Z98.890 Other specified postprocedural states; Z79.899 Other long term (current) drug therapy; Z79.82 Long term (current) use of aspirin; Z72.89 Other problems related to lifestyle; Z88.8 Allergy status to other drugs, medicaments and biological substances
CPT/HCPCS: 62323; J1100; Q9965

== ENCOUNTER → 2021-12-06 | Outpatient (CLI) | payer BC ==
[~2021-12-06] MED LIST changes: -DEXAMETHASONE PRES.FREE 10 MG/ML VIAL. ONE; -IOHEXOL 180 MG/ML 10 ML VIAL. ONE
--- NOTE | 2021-12-06 16:46 | PDOC ---
Progress Note - Pain Clinic Date of Service: DOS: DATE: 12/06/21 TIME: 16:44 Diagnosis: Dx: Lumbar radiculopathy with lumbar degenerative disc disease Cervical radiculopathy Left shoulder joint pain with osteoarthritis History or Present Illness: HPI: Telemedicine visit today with patient's identity verified with full name as well as full date of , total time spent 12 minutes, telephone voice only. 66-year-old female via telemedicine visit today requesting refill of hydrocodone 5 mg. Patient reports has been doing very well at this has not having any side effects and reduces the pain by about 75% overall. Patient reports her pain level is about a 5 on a scale 10 no new side effects still significant pain in the base of the neck and shoulder as well as in the low back and right shoulder but very manageable with medication at up to 3 tablets daily. Patient reports she has some pain in her left hip recently was seen by the ER and was given a Toradol shot which helped significantly and they diagnosed her with arthritis at that time otherwise has no new findings no new motor or sensory deficits or other complaints. Options were discussed with patient we will refill patient's medication via electronic prescription and patient was given instructions well side effects beware with the medication we will follow-up in approximate 30 days as scheduled. DAVID MCHUGH MD December 06, 2021 16:46
--- NOTE | 2021-12-06 16:54 | NUR ---
Patient called states she needs a medication refill, verified patients name ,, medications, Pharmacy, next appointment. Patient denied constipation,states pain level is a5/[address] Lieberman
== END | disposition home or self-care (01) ==
LOC: PNCL 12:15
PROVIDERS: ATTEND Anesthesiology
DX: M51.16 Intervertebral disc disorders with radiculopathy, lumbar region (principal); M19.012 Primary osteoarthritis, left shoulder; I10 Essential (primary) hypertension; E78.00 Pure hypercholesterolemia, unspecified; F41.9 Anxiety disorder, unspecified; F32.9 Major depressive disorder, single episode, unspecified; Z79.82 Long term (current) use of aspirin; Z79.899 Other long term (current) drug therapy; Z90.49 Acquired absence of other specified parts of digestive tract; Z90.710 Acquired absence of both cervix and uterus; Z98.890 Other specified postprocedural states; Z72.89 Other problems related to lifestyle; Z88.8 Allergy status to other drugs, medicaments and biological substances
CPT/HCPCS: 99212; G0463